=== PATIENT | male | born 1995 | race Caucasian/White ===

== ENCOUNTER 2018-04-09 12:48 | Emergency (ER) | payer OTHER, SELFPAY ==
[2018-04-09 12:55] VITALS: BP 111/67; PULSE 84; RESP 16; TEMP 37; O2SAT 96
--- NOTE | 2018-04-09 13:22 | NUR.NOTE ---
MD Costa is at the bedside.
--- NOTE | 2018-04-09 13:23 | W.ED.GENAD ---
Discharge Plan Disposition Patient Disposition: HOME Condition: Stable Discharge Details Chief Complaint: Nk/Back Pain Clinical Impression: Chronic low back pain Primary Care Provider: NONE,NONE ED Provider: Cristina Costa Home Meds and New Rx's Prescriptions: New cyclobenzaprine 10 mg tablet 10 mg PO TID PRN (Reason: muscle spasm) Qty: 10 RF: 0 ibuprofen 600 mg tablet 600 mg PO QID PRN (Reason: pain) Qty: 20 RF: 0 Continue ibuprofen 600 MG tablet 600 mg PO QID PRN PRNQty: 30 RF: 0 Discharge Instructions Instructions: Low Back Strain (ED) Additional Instructions: Alternate ice and heat to the affected area several times daily. Alternate Tylenol and Motrin as needed and directed for pain. Follow-up with primary care doctor in 1 week for reevaluation as needed. Return to the emergency department with any worsening or new concerning symptoms. Stand Alone Forms: Work Release Discharge Data Discharge Physician: Cristina Costa Medical Decision Making 22yo M who presents with lower back pain for the past 2-3 weeks, worse today when getting out of bed to a standing position. No radiation of pain to leg, leg weakness or numbness, no cauda equina symptoms. No urinary symptoms. No fever. 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 Vitals within normal limits. Patient is tender to palpation in the bilateral lumbar paraspinal region. There is no evidence of trauma or abscess. Neurovascularly intact. No focal deficits. Appears consistent with muscle strain/muscle spasm from chronic back pain from lifting. I do not see any indication for labs or imaging as there are no systemic symptoms or history of injury or focal deficits. Will give dose of Motrin here and sent home with a prescription for Motrin and Flexeril. Patient instructed to follow-up with primary care doctor in 1 week and to return here if worse. Patient requests a work note for tomorrow. HPI General Mode of arrival: ambulatory. Date/Time Provider Initiated Documentation: 04/09/18 13:06. Limitations to Documentation: no limitations. Information obtained by: patient. HPI Narrative: Patient is a 22-year-old male who presents with lower back pain for the past 2-3 weeks. 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 States today he noted that his pain was worse when moving from a supine to sitting and standing position. Patient states he walked here to the emergency department from home. He denies radiation of pain to leg, leg weakness or numbness, urinary or fecal incontinence, saddle anesthesia, abdominal pain, fever, nausea, vomiting or penile discharge. Pt took tylenol for pain this am without relief. He has not taken motrin for pain. Past medical history: None Surgical history: Ankle ORIF Social history: Smokes tobacco, Occasional beer, Daily marijuana Meds: None Allergies: None PCP: [facility] Related Data Home Medications Medication Instructions Recorded Confirmed ibuprofen 600 mg PO QID PRN PRN #30 tab 04/06/15 04/09/18 cyclobenzaprine 10 mg PO TID PRN #10 tab 04/09/18 ibuprofen 600 mg PO QID PRN #20 tab 04/09/18 Previous Rx's Medication Instructions Recorded ibuprofen 600 mg PO QID PRN PRN #30 tab 04/06/15 cyclobenzaprine 10 mg PO TID PRN #10 tab 04/09/18 ibuprofen 600 mg PO QID PRN #20 tab 04/09/18 Allergies Allergy/AdvReac Type Severity Reaction Status Date / Time No Known Allergies Allergy Unverified 04/09/18 12:58 General Stated Complaint: Nk/Back Pain NIYA: 4 Review of Systems Review of Systems All systems reviewed & are unremarkable except as noted in HPI and below Constitutional Reports as per HPI, Denies chills and Denies fever(s) Eyes Denies blurry vision ENT Denies dizziness, Denies sore throat and Denies throat swelling Cardiovascular Denies chest pain and Denies dyspnea Respiratory Denies dyspnea Gastrointestinal Denies abdominal pain, Denies diarrhea and Denies vomiting Genitourinary Denies hematuria and Denies dysuria Musculoskeletal Reports back pain and Denies numbness Integumentary/Breasts Denies lesions and Denies rash Neurologic Denies dizziness and Denies numbness Allergic/Immunologic Denies throat swelling [facility] Social History Smoking/Tobacco Use Status: Current every day Exam Const General: cooperative, healthy appearing and no acute distress HENMT Head: normal to inspection Mouth: oral mucosae normal Eyes General: appearance normal, both eyes and all related structures Neck Neck: normal visual inspection Resp Effort & Inspection: normal respiratory effort and able to speak in complete sentences Auscultation: clear to auscultation bilaterally Cardio Rate: regular rate Rhythm: regular rhythm GI Inspection: normal to inspection Palpation: soft, not firm, no masses, not rigid and nontender Auscultation: normal bowel sounds Penis: normal penis Scrotum: scrotum normal Testes: normal Back/Spine/Pelvis Thoracic/Lumbar Spine: thoracic and lumbar spine normal to inspection, paraspinal tenderness (b/l lumbar paraspinal region ), No thoracic spinal tenderness and No lumbar spinal tenderness Skin General skin exam: no rashes or lesions noted Neuro General: alert, awake and oriented x3 Motor: muscle tone normal throughout and strength 5/5 throughout DTR's: Rt Patellar: 1+, Lt Patellar: 1+, Rt Ankle: 1+ and Lt Ankle: 1+ Plantar Reflexes: Equivocal: bilateral Extrem General: normal to inspection and full ROM Other: B/L DP/PT pulses intact. Psych Appearance: grossly normal Affect: normal affect Course Vital Signs Temperature 98.6 F 04/09/18 12:55 Pulse 84 04/09/18 12:55 Respiratory Rate 16 04/09/18 12:55 Blood Pressure 111/67 04/09/18 12:55 Pulse Oximetry 96 04/09/18 12:55 Temperature 98.6 F 04/09/18 12:55 Temperature Source Skin 04/09/18 12:55 Pulse 84 04/09/18 12:55 Respiratory Rate 16 04/09/18 12:55 Respiratory Effort Non-Labored 04/09/18 12:55 Blood Pressure 111/67 04/09/18 12:55 Pulse Oximetry 96 04/09/18 12:55 Oxygen Delivery Method Room Air 04/09/18 12:55 Oxygen Flow Rate 0 04/09/18 12:55 Pain Level 7 04/09/18 12:55
[2018-04-09] MEDS: Ibuprofen 600 MG TAB PO (13:26)
== END 2018-04-09 13:38 | disposition home or self-care (01) ==
PROVIDERS: Emergency Provider Physician Assistant
DX: M54.5 Low back pain (principal); G89.29 Other chronic pain
CPT/HCPCS: 99283

== ENCOUNTER 2019-02-10 11:44 | Emergency (ER) | payer SELFPAY ==
[2019-02-10 11:48] VITALS: BP 133/73; PULSE 66; RESP 16; TEMP 36.5; O2SAT 99
--- NOTE | 2019-02-10 11:50 | ED.GENADUL_ITS ---
Discharge Plan Disposition Patient Disposition: HOME Condition: Stable Discharge Details Chief Complaint: Orthopedic Clinical Impression: Left knee sprain Primary Care Provider: None,None ED Provider: Cristina Costa Discharge Instructions Instructions: Knee Sprain (ED) Additional Instructions: Alternate tylenol and motrin as needed and directed for pain. Apply ice to the affected area several times daily for 20 minutes at a time. Follow up with your primary care doctor next week for re-evaluation as needed. Return to the emergency department with any concerns. Discharge Data Discharge Physician: Cristina Costa Medical Decision Making 23-year-old male presents with left knee pain after a twisting injury last night in which he may have dislocated and then his friends reduced his patella. Swelling now improved. No complaint of fever or calf pain. There is minimal pain with range of motion but otherwise knee exam within normal limits without signs of cellulitis, trauma, or ligamentous instability. Neurovascularly intact. No left calf tenderness. Presentation most likely consistent with knee sprain. Doubt fracture or ligament tear. We will give a dose of ibuprofen and sent for left knee x-ray. Knee xray negative. Young wrap placed. Advised to rest, ice and elevate. Advised to alternate Tylenol and Motrin. Patient recommended to follow-up with the primary care doctor for evaluation and to return here anytime if worse. HPI General Mode of arrival: ambulatory . Date/Time Provider Initiated Documentation: 02/10/19 11:46 . Limitations to Documentation: no limitations . Information obtained by: patient . HPI Narrative: Patient is a 23-year-old male who presents with left knee pain since last night after a twisting injury. Patient states he was walking when he feels like his left knee popped out. He states his friends evaluated his knee and thought he may have dislocated his kneecap and thinks they may have popped back into place. Patient states he has had left knee swelling and pain since then. He states the swelling is much improved this morning. He has not taken Motrin or Tylenol for pain. He denies any fever, calf pain or swelling, hip pain, numbness or weakness. Related Data Allergies Allergy/AdvReac Type Severity Reaction Status Date / Time No Known Allergies Allergy Unverified 02/10/19 11:49 General Stated Complaint: Orthopedic NIYA: 3 Review of Systems Review of Systems All systems reviewed & are unremarkable except as noted in HPI and below PFSH Medical History No significant past medical history (Acute) Surgical History No significant past surgical history (Acute) Social History Smoking/Tobacco Use Status: Current every day Alcohol Intake: former Drug use: Occasionally Substance use type: marijuana Do you feel safe at home: Yes Do you feel safe in your relationship?: Yes Exam Const General: cooperative, healthy appearing and no acute distress HENMT Head: normal to inspection Mouth: oral mucosae normal Eyes General: appearance normal, both eyes and all related structures Neck Neck: normal visual inspection Resp Effort & Inspection: normal respiratory effort and able to speak in complete sentences Cardio Rate: regular rate Skin General skin exam: no rashes or lesions noted Neuro General: alert, awake and oriented x3 Motor: muscle tone normal throughout Extrem Other: Tenderness to palpation L anterior knee and pain with ROM at L anterior knee. Minimal pain with valgus and varus stress but no ligamentous instability. Negative anterior and posterior drawer tests. Negative Bridgette's test. No edema, ecchymoses, erythema. No pain with ROM at L hip, L ankle/foot. L DP/PT pulses intact. No L calf tenderness. Psych Appearance: grossly normal Affect: normal affect Course Vital Signs Temperature 97.7 F 02/10/19 11:48 Pulse 66 02/10/19 11:48 Respiratory Rate 16 02/10/19 11:48 Blood Pressure 133/73 02/10/19 11:48 Pulse Oximetry 99 02/10/19 11:48 Temperature 97.7 F 02/10/19 11:48 Temperature Source Temporal Artery Scan 02/10/19 11:48 Pulse 66 02/10/19 11:48 Respiratory Rate 16 02/10/19 11:48 Blood Pressure 133/73 02/10/19 11:48 Pulse Oximetry 99 02/10/19 11:48 Pain Level 4 02/10/19 11:48
--- NOTE | 2019-02-10 12:15 | DI.RAD_ITS ---
SYMPTOMS/DIAGNOSIS: S/P POPPING OF LT KNEE, ? ACUTE INJURY LEFT KNEE: Four views were obtained. No fracture is seen.
[2019-02-10] MEDS: Ibuprofen 600 MG TAB PO (12:26)
[2019-02-10 20:27] VITALS: BP 133/73; PULSE 66; RESP 16; TEMP 36.5; O2SAT 99
== END 2019-02-10 13:15 | disposition home or self-care (01) ==
PROVIDERS: Emergency Provider Physician Assistant
DX: S83.92XA Sprain of unspecified site of left knee, initial encounter (principal); X50.9XXA Other and unspecified overexertion or strenuous movements or postures, initial encounter
CPT/HCPCS: 99283; 73564

== ENCOUNTER 2019-10-26 12:15 | Emergency (ER) | payer SELFPAY ==
[2019-10-26 12:25] VITALS: BP 122/67; PULSE 76; RESP 15; TEMP 37.2; O2SAT 97
--- NOTE | 2019-10-26 12:35 | W.ED.GENAD ---
Discharge Plan Disposition Patient Disposition: HOME Condition: Good Discharge Details Chief Complaint: Orthopedic Clinical Impression: Contusion of hand, left Primary Care Provider: None,None ED Provider: Jeromy Arroyo Home Meds and New Rx's Prescriptions: No Action No Known Home Meds RF: 0 Discharge Instructions Instructions: Hand Sprain (ED) Additional Instructions: At this time your x-ray shows no evidence of fracture. Please use the splint as needed for comfort, please take 800 mg of ibuprofen every 6 hours and 1000 mg of Tylenol every 6 hours. If you let your hand rest I suspect that you should have a notable improvement in the next week. If you notice any worsening of your symptoms, or any new symptoms such as vomiting, diarrhea, fever, chills, shortness of breath, chest pain, numbness, weakness, or fainting , please return immediately to the emergency department for reevaluation. Please follow up with your primary care provider as soon as possible for reassessment and reevaluation. As always, it was a pleasure participating in your medical care today. Medical Decision Making 24-year-old male who is right-hand dominant who presents today for evaluation of left hand pain. Patient states that yesterday he punched a truck with his left hand, developed pain in his third fourth and fifth knuckle, primarily the fourth and fifth toe. He has mild achiness, he has difficulty flexing and extending his finger secondary to the pain. He has not taken any Tylenol or Motrin for the pain. He denies any numbness or tingling. No pain in the hand, or wrist. No other complaints at this time. Physical exam demonstrates tenderness over the fourth and fifth knuckle, no atypical rotational component with flexion, strength is intact however limited secondary to pain for flexion and extension of the fourth and fifth digit, other significant pain noted otherwise, normal neurovascular exam. We will get an x-ray to rule out fracture. 12:54 PM The patient's x-ray results have returned, per Dr. Horton no evidence of acute fracture or other abnormality, suspect notable contusion of the bones of the left hand. Out of an abundance of precaution we will give him a boxers splint for comfort, and recommend continue Tylenol and Motrin on an outpatient basis. Discussed red flags for which to return. I have extensively reviewed the treatment plan and discharge instructions with the patient. I have addressed all patient concerns at this time. The patient was made aware of what symptoms to monitor for that would warrant a return to the emergency department. Discussed the plan with the patient, they demonstrate verbal understanding and agreement with our assessment and plan at this time. HPI General Date/Time Provider Initiated Documentation: 10/26/19 12:21. HPI Narrative: 24-year-old male who is right-hand dominant who presents today for evaluation of left hand pain. Patient states that yesterday he punched a truck with his left hand, developed pain in his third fourth and fifth knuckle, primarily the fourth and fifth toe. He has mild achiness, he has difficulty flexing and extending his finger secondary to the pain. He has not taken any Tylenol or Motrin for the pain. He denies any numbness or tingling. No pain in the hand, or wrist. No other complaints at this time. Related Data Home Medications Medication Instructions Recorded Confirmed Unknown [No Known Home Meds] 10/26/19 10/26/19 Allergies Allergy/AdvReac Type Severity Reaction Status Date / Time No Known Allergies Allergy Unverified 10/26/19 12:29 General Stated Complaint: Orthopedic NIYA: 4 Review of Systems All systems reviewed & are unremarkable except as noted in HPI and below [facility] Social History Smoking/Tobacco Use Status: Current every day Alcohol Intake: former Drug use: Occasionally Substance use type: marijuana Do you feel safe at home: Yes Do you feel safe in your relationship?: Yes Exam Narrative Exam Narrative: 1.Const: Well-nourished, Well-developed, appearing stated age 2.Eyes: PERRL, no conjunctival injection, and symmetrical lids. 3.ENT: Atraumatic external nose and ears. Moist MM. Neck: Symmetric, trachea midline, No thyromegaly. 4.CVS: +S1/S2, No murmurs or gallops. Peripheral pulses 2+ and equal in all extremities. Brisk capillary refill in all extremities. 5.RESP: Unlabored respiratory effort. Clear to auscultation bilaterally. No wheezes rales or rhonchi 6.GI: Soft, Nontender/Nondistended, No hepatosplenomegaly. No guarding or rebound. 7.MSK: Normocephalic/Atraumatic, Extremities w/o deformity. No cyanosis or clubbing. Left hand: Symmetrically palpable radial and ulnar pulses. Capillary refill less than 2 seconds to all digits. Intact sensation to light touch of the radial, median and ulnar nerves demonstrated by testing in the dorsal web space of the thumb, the distal palmar aspect of the index finger, and the lateral surface of the fifth finger. 2 point discrimination intact to 5mm (up to 6mm can be normal in digits 3-5) of discrimination in the affected digits 3 through 5. Intact motor function of the radial, median and ulnar nerves demonstrated by strength of extension of the isolated distal joint of the index finger, hand polisher dial, and spreading of the 2nd through 5th digits, however the patient does have mild to moderate pain with extension of the fourth and fifth digit as well as flexion of her strength remains intact.. Intact recurrent median nerve as demonstrated by ability to move thumb fully through opposition, abduction and flexion. No snuffbox tenderness. Focal tenderness is noted over the knuckle of the fourth and fifth digit, as well as slightly distally about 1 cm down the proximal phalanx. No deformity, no atypical rotation with flexion. 8.Skin: Warm, Dry. No rashes or lesions. 9.Neuro: forge heater II-XII grossly intact. Sensation grossly intact, no focal neurologic deficits. 10.Psych: (AAO) x3. Appropriate mood and affect Course Vital Signs Vital signs: Vital Signs Temperature 37.2 C 10/26/19 12:25 Pulse 76 10/26/19 12:25 Respiratory Rate 15 10/26/19 12:25 Blood Pressure 122/67 10/26/19 12:25 Pulse Oximetry 97 10/26/19 12:25 Temperature 37.2 C 10/26/19 12:25 Temperature Source Temporal Artery Scan 10/26/19 12:25 Pulse 76 10/26/19 12:25 Respiratory Rate 15 10/26/19 12:25 Respiratory Effort Non-Labored 10/26/19 12:29 Blood Pressure 122/67 10/26/19 12:25 Blood Pressure Position Supine 10/26/19 12:25 Pulse Oximetry 97 10/26/19 12:25 Oxygen Delivery Method Room Air 10/26/19 12:25 Oxygen Flow Rate 0 10/26/19 12:25 Pain Level 7 10/26/19 12:30
--- NOTE | 2019-10-26 12:43 | DI.RAD_ITS ---
EXAM: XR HAND LT COMPLETE CLINICAL HISTORY: pain at 4th and 5th knuckle. TECHNIQUE: 2D digital imaging was performed. COMPARISON: No exams were available for comparison FINDINGS: BONES: No acute fracture is present. No bony destructive lesion is seen. JOINTS: No dislocation present. SOFT TISSUE: Normal. IMPRESSION: Unremarkable radiographs of the left hand. DATA REPOSITORY: RADIATION DOSE DELIVERED:
== END 2019-10-26 13:05 | disposition home or self-care (01) ==
PROVIDERS: Emergency Provider Student in an Organized Health Care Education/Training Program
DX: S60.222A Contusion of left hand, initial encounter (principal); W22.8XXA Striking against or struck by other objects, initial encounter
CPT/HCPCS: 29125; 99283; 73130; L3807

== ENCOUNTER 2022-02-25 13:20 | Emergency (ER) | payer SELFPAY ==
[2022-02-25 13:29] VITALS: BP 116/58; PULSE 65; RESP 18; TEMP 36.9; O2SAT 98
--- NOTE | 2022-02-25 16:03 | NUR.NOTE ---
Addendum entered by Sheron Jones 02/25/22 16:04: LWBS [id number] Original Note: Nursing Note: Patient LWBS stating to access that he had to go brass pickler his girlfriend and seemed annoyed.
== END 2022-02-25 14:31 | disposition left before discharge ==
DX: Z53.21 Procedure and treatment not carried out due to patient leaving prior to being seen by health care provider (principal)

== ENCOUNTER 2023-03-26 18:45 | Emergency (ER) | payer SELFPAY ==
[2023-03-26 18:50] VITALS: BP 135/87; PULSE 83; RESP 16; TEMP 37; O2SAT 100
--- NOTE | 2023-03-26 19:15 | ED.GENADUL_ITS ---
Discharge Plan Disposition Patient Disposition: Home Condition: Stable Discharge Details Clinical Impression: Cellulitis of postauricular region, Abscess of right upper extremity Primary Care Provider: None,None ED Provider: Clemente Zhao Home Meds and New Rx's Prescriptions: New sulfamethoxazole-trimethoprim 800-160 mg tablet 1 tab PO BID Qty: 13 0RF cephalexin 500 mg capsule 500 mg PO QID Qty: 27 0RF Discharge Instructions Instructions: Cellulitis (ED), Abscess (ED) Additional Instructions: Please take full course of antibiotic as prescribed. Please contact your primary care physician to arrange follow-up. Return to the ER immediately for any worsening or new concerning symptoms. Medical Decision Making 27-year-old male here with multiple skin abscesses and developing cellulitis left postauricular. Plan to initiate treatment with cephalexin and sulfamethizole trimethoprim. Usual and customary discharge instructions reviewed with the patient. HPI General Mode of arrival: ambulatory . Date/Time Provider Initiated Documentation: 03/26/23 19:03 . Limitations to Documentation: no limitations . Information obtained by: patient . HPI Narrative: 27-year-old male presents with chief complaint of rash. Patient notes rash behind his left ear that started a few days ago and has worsened. He is concerned for infection. He notes he frequently picks skin lesions. He also notes multiple draining abscesses on his right arm recently. Patient denies IV drug use. Related Data Home Medications Medication Instructions Recorded Confirmed cephalexin 500 mg capsule 500 mg PO QID #27 caps 03/26/23 sulfamethoxazole 800 1 tab PO BID #13 tabs 03/26/23 mg-trimethoprim 160 mg tablet Previous Rx's Medication Instructions Recorded cephalexin 500 mg capsule 500 mg PO QID #27 caps 03/26/23 sulfamethoxazole 800 1 tab PO BID #13 tabs 03/26/23 mg-trimethoprim 160 mg tablet Allergies Allergy/AdvReac Type Severity Reaction Status Date / Time No Known Allergies Allergy Unverified 10/26/19 12:29 General Stated Complaint: RashLesion NIYA: 4 Review of Systems Constitutional Constitutional: Denies fever(s) Integumentary/Breasts Skin/Breast: Reports as per HPI PFSH All Active Problems Abscess of right upper extremity (Acute) Cellulitis of postauricular region (Acute) Medical History No significant past medical history Surgical History No significant past surgical history Social History Smoking/Tobacco Use Status: Current every day Smoking risk assessment performed?: Yes Alcohol Intake: former Drug use: Occasionally Substance use type: marijuana Do you feel safe at home: Yes Do you feel safe in your relationship?: Yes Exam Cardio Rate: regular rate Skin General skin exam: no induration Rashes: rashes noted (Cellulitis posterior to the left ear) Other: Abscess with ulcer, not actively draining right forearm and another right upper arm, no fluctuance Course Vital Signs Vital signs: Vital Signs Temperature 37.0 C 03/26/23 18:50 Pulse 83 03/26/23 18:50 Respiratory Rate 16 03/26/23 18:50 Blood Pressure 135/87 03/26/23 18:50 Pulse Oximetry 100 03/26/23 18:50 Temperature 37.0 C 03/26/23 18:50 Temperature Source Temporal Artery Scan 03/26/23 18:50 Pulse 83 03/26/23 18:50 Respiratory Rate 16 03/26/23 18:50 Blood Pressure 135/87 03/26/23 18:50 Blood Pressure Position Sitting 03/26/23 18:50 Pulse Oximetry 100 03/26/23 18:50 Oxygen Delivery Method Room Air 03/26/23 18:50 Oxygen Flow Rate 0 03/26/23 18:50 Pain Level 3 03/26/23 18:50
[2023-03-26] MEDS: Sulfameth/Trimeth DS TAB 1 TAB PO (19:28)
[2023-03-26] MEDS: Cephalexin 500 MG CAP PO (19:28)
== END 2023-03-26 19:36 | disposition home or self-care (01) ==
PROVIDERS: Emergency Provider Student in an Organized Health Care Education/Training Program
DX: L02.413 Cutaneous abscess of right upper limb (principal); L03.811 Cellulitis of head [any part, except face]
CPT/HCPCS: 99283

== ENCOUNTER 2023-09-10 14:33 | Emergency (ER) | payer SELFPAY ==
[2023-09-10 14:43] VITALS: BP 143/78; PULSE 69; RESP 18; TEMP 37.1; O2SAT 100
[2023-09-10 15:06] VITALS: BP 143/78; PULSE 69; RESP 18; TEMP 37.1; O2SAT 100
--- NOTE | 2023-09-10 15:15 | DI.US_ITS ---
Exam(s) US SCROTUM EXAM: US SCROTUM CLINICAL HISTORY: Testicular pain left. TECHNIQUE: Scrotal ultrasound performed using grayscale, color-flow and spectral Doppler analysis. COMPARISON: No exams were available for comparison FINDINGS: RIGHT TESTICLE: 5.1 x 2.4 x 2.9 cm Echogenicity: Normal. Contour: Smooth. Mass: None seen. Microlithiasis: None. Hydrocele: None. Varicocele: None. Hernia: No peristalsing bowel loop identified. Epididymis: Normal. Scrotum: Normal. LEFT TESTICLE: 4.7 x 2.3 x 2.9 cm Echogenicity: Normal. Contour: Smooth. Mass: None seen. Microlithiasis: None. Hydrocele: Small hydrocele. Varicocele: None. Hernia: No peristalsing bowel loop identified. Epididymis: 4mm spermatocele Scrotum: Normal. DOPPLER: Color: Symmetric and uniform, no hyperemia. Duplex: Bilateral testicular arterial waveforms visualized. IMPRESSION: Normal appearing bilateral testicles. Smallleft hydrocele. DATA REPOSITORY:
[2023-09-10 15:40] LABS: Abs Immature Grans 0.05 10^3/uL (0.0-0.06); Absolute Basophil Count 0.04 10^3/uL (0.0-0.2); Absolute Eosinophil Count 0.05 10^3/uL (0.0-0.7); Absolute Lymphocyte Count 1.72 10^3/uL (1.2-3.4); Absolute Monocyte Count 0.82 10^3/uL (0.1-0.8); Absolute Neutrophil Count 7.45 10^3/uL (1.2-6.7); Basophils % 0.4; Eosinophils % 0.5; HCT 39.9 % (40.0-50.0); Immature Grans % 0.5; MCHC 35.1 % (32.0-36.0); MCV 88 fL (80-95); MPV 9.7 fL (8.0-11.0); Monocytes % 8.1; Neutrophils % 73.5; Platelet Count 311 10^3/uL (130-400); RBC 4.52 10^6/uL (4.36-5.78); RDW 13.2 % (11.8-14.1); RDW-SD 42.6 fL; WBC 10.13 10^3/uL (4.4-10.8)
[2023-09-10 16:01] LABS: ALT 27 U/L (16-63); AST 16 U/L (15-37); Albumin 3.8 g/dL (3.4-5.0); Alkaline Phosphatase 99 U/L (46-116); Anion Gap 12.4 mmol/L (3-11); BUN 9 mg/dL (7-18); Bilirubin, Total 0.3 mg/dL (0.2-1.0); CO2 25.6 mmol/L (21.0-32.0); CREATININE 0.8 mg/dL (0.70-1.30); Calcium 9.4 mg/dL (8.5-10.1); Chloride 104 mmol/L (98-107); Glucose 69 mg/dL (74-106); Lipase 23 U/L (16-77); Magnesium 1.9 mg/dL (1.8-2.4); Potassium 3.2 mmol/L (3.5-5.1); Sodium 142 mmol/L (136-145); Total Protein 7.4 g/dL (6.4-8.2)
[2023-09-10 17:04] LABS: Bilirubin Negative (Negative); Blood Negative (Negative); Clarity Clear (Clear); Glucose Negative (Negative); Ketones Trace mg/dL (Negative); Leukocyte Esterase Negative (Negative); Nitrite Negative (Negative); Specific Gravity 1.025 (1.005-1.025); Urobilinogen 0.2 mg/dL (Up to 0.2); pH 7.5 (5-8)
--- NOTE | 2023-09-10 17:12 | NUR.NOTE ---
Nursing Note: PT needs follow up in the next few weeks with surgery for an inguinal hernia. Debby, ED
[2023-09-10 17:18] VITALS: BP 143/78; PULSE 69; RESP 18; TEMP 37.1; O2SAT 100
--- NOTE | 2023-09-10 17:29 | ED.GENADUL_ITS ---
Discharge Plan Disposition Patient Disposition: Home Condition: Stable Discharge Details Clinical Impression: Inguinal hernia Primary Care Provider: Unknown,Unknown ED Provider: Deandra Massey Home Meds and New Rx's Prescriptions: New ondansetron HCl 4 mg tablet 4 mg PO DAILY 5 Days Qty: 5 0RF potassium chloride 20 mEq tablet,ER particles/crystals 20 meq PO DAILY Qty: 7 0RF Discontinued sulfamethoxazole-trimethoprim 800-160 mg tablet 1 tab PO BID Qty: 13 0RF cephalexin 500 mg capsule 500 mg PO QID Qty: 27 0RF Discharge Instructions Instructions: Inguinal Hernia (ED) Additional Instructions: You have an inguinal hernia, refrain from lifting more than 10 pounds Follow-up with surgery, and listing a referral below The more you lived more likely your inguinal hernia will grow in size and become more painful Please refer to enclose packet information I am writing for Zofran as needed for nausea and vomiting The surgical group will likely call to schedule follow-up Take ibuprofen and Tylenol as needed for pain Follow-up with your Medicaid process to be sure that you have insurance Stand Alone Forms: Work Release Referrals: Martinez Stover MD [ CONSULTING PHYSICIAN] - HPI General Date/Time Provider Initiated Documentation: 09/10/23 14:56 . HPI Narrative: This 28-year-old male presents with pain left lower quadrant that he states has been going on for 2 weeks, worse when he is lifting, lifts greater than 100 pounds daily. Patient denies fever or chills. Sexually active and monogamous. Denies fever or chills. States pain has been intermittent, worse with walking moving and lifting. Related Data Home Medications Medication Instructions Recorded Confirmed ondansetron HCl 4 mg tablet 4 mg PO DAILY 5 days #5 tabs 09/10/23 potassium chloride 20 mEq 20 meq PO DAILY #7 tabs 09/10/23 tablet,extended release(part/cryst) Previous Rx's Medication Instructions Recorded ondansetron HCl 4 mg tablet 4 mg PO DAILY 5 days #5 tabs 09/10/23 potassium chloride 20 mEq 20 meq PO DAILY #7 tabs 09/10/23 tablet,extended release(part/cryst) Allergies Allergy/AdvReac Type Severity Reaction Status Date / Time No Known Allergies Allergy Unverified 10/26/19 12:29 General Stated Complaint: Abd Prob NIYA: 3 Course Vital Signs Vital signs: Vital Signs Temperature 37.1 C 09/10/23 14:43 Pulse 69 09/10/23 14:43 Respiratory Rate 18 09/10/23 14:43 Blood Pressure 143/78 H 09/10/23 14:43 Pulse Oximetry 100 09/10/23 14:43 Temperature 37.1 C 09/10/23 17:18 Temperature Source Temporal Artery Scan 09/10/23 15:06 Pulse 69 09/10/23 17:18 Respiratory Rate 18 09/10/23 17:18 Respiratory Effort Labored 09/10/23 15:06 Blood Pressure 143/78 H 09/10/23 17:18 Blood Pressure Position Sitting 09/10/23 15:06 Pulse Oximetry 100 09/10/23 17:18 Oxygen Delivery Method Room Air 09/10/23 15:06 Oxygen Flow Rate 0 09/10/23 15:06 Pain Level 5 09/10/23 17:18 Lab/Test Results Lab/Test Results: Laboratory Tests Range/Units 09/10/23 09/10/23 15:20 16:45 WBC (4.4-10.8) 10^3/uL 10.13 RBC (4.36-5.78) 10^6/uL 4.52 Hgb (13.5-17.5) g/dL 14.0 Hct (40.0-50.0) % 39.9 L MCV (80-95) fL 88 MCH (27.0-33.0) pg 31.0 MCHC (32.0-36.0) % 35.1 RDW (11.8-14.1) % 13.2 Plt Count (130-400) 10^3/uL 311 MPV (8.0-11.0) fL 9.7 Immature Gran % 0.5 Neutrophils % 73.5 Lymphocytes % 17.0 Monocytes % 8.1 Eosinophils % 0.5 Basophils % 0.4 Nucleated RBC % (0.0-0.3) % 0.0 Absolute Neutrophils (1.2-6.7) 10^3/uL 7.45 H Absolute Lymphocytes (1.2-3.4) 10^3/uL 1.72 Absolute Monocytes (0.1-0.8) 10^3/uL 0.82 H Absolute Eosinophils (0.0-0.7) 10^3/uL 0.05 Absolute Basophils (0.0-0.2) 10^3/uL 0.04 Sodium (136-145) mmol/L 142 Potassium (3.5-5.1) mmol/L 3.2 L Chloride (98-107) mmol/L 104 Carbon Dioxide (21.0-32.0) mmol/L 25.6 Anion Gap (3-11) mmol/L 12.4 H BUN (7-18) mg/dL 9 Creatinine (0.70-1.30) mg/dL 0.8 Est GFR (CKD-EPI 2020) (mL/min/1.73m2) 122.10 Glucose (74-106) mg/dL 69 L Calcium (8.5-10.1) mg/dL 9.4 Magnesium (1.8-2.4) mg/dL 1.9 Total Bilirubin (0.2-1.0) mg/dL 0.3 AST (15-37) U/L 16 ALT (16-63) U/L 27 Alkaline Phosphatase (46-116) U/L 99 Total Protein (6.4-8.2) g/dL 7.4 Albumin (3.4-5.0) g/dL 3.8 Lipase (16-77) U/L 23 Urine Color (Yellow) Yellow Urine Clarity (Clear) Clear Urine pH (5-8) 7.5 Ur Specific [place] (1.005-1.025) 1.025 Urine Protein (Neg-Trace) mg/dL Negative Urine Ketones (Negative) mg/dL Trace H Urine Blood (Negative) Negative Urine Nitrite (Negative) Negative Urine Bilirubin (Negative) Negative Urine Urobilinogen (Up to 0.2) mg/dL 0.2 Ur Leukocyte Esterase (Negative) Negative Urine Glucose (Negative) mg/dL Negative Medical Decision Making This otherwise healthy 28-year-old male presents with left lower quadrant pain which started about 2 weeks ago, lifts heavy items at work Sexually active monogamous denies risk of STDs, urinalysis without evidence of infection, new leukocytosis, small left hydrocele on ultrasound Left inguinal hernia small palpated on exam No rebound or guarding, easily reducible Potassium 3.2 will supplement Gap of 12.4, drinking tess saloni, glucose of 69, 2 cans of tess saloni supplied Pending GC chlamydia, will refer to surgery for small inguinal hernia, work note supplied for weight lifting restrictions Return precautions reviewed and patient expressed understanding Quality:SDOH Health Related Social Needs: Health related social needs transpo insecurity PFSH All Active Problems (Updated 09/10/23 @ 17:09 by ISIS Watts) Inguinal hernia (Acute) Medical History (Updated 09/10/23 @ 17:09 by ISIS Watts) No significant past medical history Surgical History No significant past surgical history Social History Smoking/Tobacco Use Status: Current every day Smoking risk assessment performed?: Yes Alcohol Intake: former Drug use: Occasionally Substance use type: marijuana Housing: house Do you feel safe at home: Yes Do you feel safe in your relationship?: Yes
[2023-09-13 13:00] LABS: Chlamydia Result Negative (Negative); GC Result Negative (Negative)
== END 2023-09-10 17:20 | disposition home or self-care (01) ==
PROVIDERS: Emergency Medicine Emergency Medical Services; Emergency Provider Physician Assistant
DX: R10.32 Left lower quadrant pain (principal); K40.90 Unilateral inguinal hernia, without obstruction or gangrene, not specified as recurrent; N50.812 Left testicular pain
CPT/HCPCS: 36415; 80053; 83690; 87491; 87591; 99284; 76870; 81003; 83735; 85025; 99283

== ENCOUNTER 2024-01-11 17:00 | Emergency (ER) | payer SELFPAY ==
[2024-01-11 17:11] VITALS: BP 117/66; PULSE 60; RESP 16; TEMP 36.9; O2SAT 100
[2024-01-11] MEDS: predniSONE 20 MG TAB 40 MG PO (17:43)
[2024-01-11] MEDS: Cyclobenzaprine 10 MG TAB, 3 TABS/BTL PO (17:43)
--- NOTE | 2024-01-11 20:42 | ED.GENADUL_ITS ---
Discharge Plan Disposition Patient Disposition: Home Condition: Stable Discharge Details Clinical Impression: Lumbar radicular pain Primary Care Provider: Unknown,Unknown ED Provider: Deandra Massey Home Meds and New Rx's Prescriptions: New prednisone 20 mg tablet 40 mg PO DAILY Qty: 8 0RF cyclobenzaprine 10 mg tablet 10 mg PO TID PRNQty: 15 0RF Continued acetaminophen [Tylenol Extra Strength] 500 mg tablet 1,000 mg PO Q6H PRN Discharge Instructions Instructions: Low Back Pain ED Additional Instructions: limit any lifting take prednisone daily and tylenol every 6 hours as needed flexeril for muscular pain, do not combine with etoh return with weakness, worsening pain, changes in bowel/bladder, fever, or should any new concerns arise Stand Alone Forms: Work Release Discharge Data Discharge Date/Time-TO BE ENTERED AT DEPARTURE: 01/11/24 17:45 HPI General Date/Time Provider Initiated Documentation: 01/11/24 17:04 . HPI Narrative: 28-year-old male presents with lumbar pain with radiation into right thigh in the past several days. History of chronic back pain worsening. Denies any changes in bowel or bladder, denies groin paresthesias. States the pain is worsened with movement. Denies any fever chills or history of illicit drug use. Denies any numbness to her extremities. Denies any fever or chills or abdominal pain. Related Data Home Medications ?Medication ?Instructions ?Recorded ?Confirmed acetaminophen 500 mg tablet 1,000 mg PO Q6H PRN 01/11/24 01/11/24 (Tylenol Extra Strength) cyclobenzaprine 10 mg tablet 10 mg PO TID PRN #15 tabs 01/11/24 prednisone 20 mg tablet 40 mg (2 x 20 mg) PO DAILY #8 tabs 01/11/24 Previous Rx's ?Medication ?Instructions ?Recorded cyclobenzaprine 10 mg tablet 10 mg PO TID PRN #15 tabs 01/11/24 prednisone 20 mg tablet 40 mg (2 x 20 mg) PO DAILY #8 tabs 01/11/24 Allergies Allergy/AdvReac Type Severity Reaction Status Date / Time No Known Allergies Allergy Verified 01/11/24 17:14 General Stated Complaint: Nk/Back Pain NIYA: 4 Exam Narrative Exam Narrative: Alert and oriented 28-year-old male in no acute distress, paraspinal lumbar tenderness without CVA tenderness or abdominal tenderness, no rashes or lesions, negative straight leg raise, sensation intact distally, DTRs intact distally, negative Babinski, ambulatory with steady gait strength intact distally Course Vital Signs Vital signs: Vital Signs Temperature 36.9 C 01/11/24 17:11 Pulse 60 01/11/24 17:11 Respiratory Rate 16 01/11/24 17:11 Blood Pressure 117/66 01/11/24 17:11 Pulse Oximetry 100 01/11/24 17:11 Temperature 36.9 C 01/11/24 17:11 Pulse 60 01/11/24 17:11 Respiratory Rate 16 01/11/24 17:11 Respiratory Effort Normal, Non-Labored 01/11/24 17:19 Blood Pressure 117/66 01/11/24 17:11 Pulse Oximetry 100 01/11/24 17:11 Pain Level 2 01/11/24 17:19 Medical Decision Making 28-year-old male presenting in no acute distress, no clinical findings consistent with cauda equina syndrome, no indication for x-ray imaging at this time, will initiate prednisone, and Flexeril. Recheck in 1 week recommended, return precautions reviewed and patient expressed understanding. Suspect lumbar radiculopathy and will need outpatient reassessment closely. Work note supplied with restrictions. Quality:SDOH Health Related Social Needs: Health related social needs transpo insecurity PFSH All Active Problems (Updated 01/11/24 @ 17:33 by ISIS Watts) Lumbar radicular pain (Acute) Strain of left groin (Acute) Medical History (Updated 01/11/24 @ 17:33 by ISIS Watts) No significant past medical history Surgical History No significant past surgical history Social History Smoking/Tobacco Use Status: Current every day Tobacco Type: cigarettes Smoking risk assessment performed?: Yes Alcohol Intake: former Drug use: Occasionally Substance use type: marijuana Housing: house Do you feel safe at home: Yes Do you feel safe in your relationship?: Yes
== END 2024-01-11 17:45 | disposition home or self-care (01) ==
LOC: ER 18:00
PROVIDERS: Emergency Provider Physician Assistant
DX: M54.16 Radiculopathy, lumbar region (principal)
CPT/HCPCS: 99283; J7512

== ENCOUNTER 2024-01-25 04:47 | Emergency (ER) | payer SELFPAY ==
[2024-01-25 04:49] VITALS: BP 111/69; PULSE 70; RESP 18; TEMP 37.3; O2SAT 100
[2024-01-25] MEDS: methylPREDNISolone SUCC 125 MG VIAL IM (05:21)
[2024-01-25] MEDS: Ketorolac 30 MG/ML VIAL IM (05:21)
[2024-01-25] MEDS: Cyclobenzaprine 10 MG TAB PO (05:21)
[2024-01-25] MEDS: Lidocaine 5% Patch 1 PATCH TP (05:21)
--- NOTE | 2024-01-25 05:34 | ED.GENADUL_ITS ---
Discharge Plan Disposition Patient Disposition: Home Condition: Good Discharge Details Clinical Impression: Radiculopathy Primary Care Provider: Unknown,Unknown ED Provider: Jeromy Arroyo Home Meds and New Rx's Prescriptions: New cyclobenzaprine 10 mg tablet 10 mg PO TID Qty: 14 0RF prednisone 20 mg tablet 20 mg PO DAILY Qty: 42 0RF Rx Instructions: Take 3 tablets daily for 7 days, followed by 2 tablets daily for 7 days, followed by 1 tablet daily for 7 days. lidocaine [Lidoderm] 5 % adhesive patch,medicated 1 patch Topical Q24H Qty: 15 0RF No Action acetaminophen [Tylenol Extra Strength] 500 mg tablet 1,000 mg PO Q6H PRN Discharge Instructions Instructions: Radiculopathy (DC) Additional Instructions: At this time your signs and symptoms are clinically consistent with a back sprain. This can cause significant pain and take a fair bit of time to heal. I expect 1 to 2 months for potential resolution. In the meantime do not lift anything greater than 5 pounds for the next 2 weeks. Avoid any significant vigorous physical activity. Perform easy gentle regular activities at home without any significant bending or lifting. Please take the steroids as directed. You have been given a prescription for Lidoderm patch. If your insurance does not cover this you can get [id number] Lidoderm patches at 4% which are almost just as effective. Please take the Flexeril as directed but do not take it when driving or operating any vehicles or heavy machinery, swimming, taking long baths, or operating firearms. Please use a heating pad as often as possible on your back. Perform daily gentle stretches on your back. Please continue to take the Tylenol and Motrin. You can take 1000 mg of Tylenol every 6 hours and 600 mg of ibuprofen every 6 hours. If you notice any worsening of your symptoms, or any new symptoms such as vomiting, diarrhea, fever, chills, shortness of breath, chest pain, numbness or tingling in your groin or legs, weakness in your legs, loss of control for your bowels or bladder, or fainting , please return immediately to the emergency department for reevaluation. Please follow up with your primary care provider as soon as possible for reassessment and reevaluation. As always, it was a pleasure participating in your medical care today. Stand Alone Forms: Physical Therapy Referral, Work Release Referrals: Lennox,Leatha, RN [Emergency Nurse] - [facility] General Date/Time Provider Initiated Documentation: 01/25/24 04:48 . [facility] Narrative: 28-year-old male with a past medical history of chronic back pain, left inguinal hernia, presents today for evaluation of worsening back pain. On 01/11/2024/he was seen and assessed by my colleague, and symptoms at that time were consistent with mild lumbar radiculopathy. He was started on a steroid burst, given NSAIDs, muscle relaxants, and during that time the patient had improvement of his symptoms. However over the last week since the medications have been finished his symptoms have returned and worsened. Particularly starting yesterday. His work does require him to lift multiple things throughout the day, but he states he has been trying to be careful about lifting too much weight. He also states that he has been having pain that radiates from his back down his legs bilaterally with the right worse than the left. He denies fever or chills. He denies IV drug use. He denies chest pain or shortness of breath. Patient denies any saddle anesthesia, numbness or tingling in the groin, change in sensation when wiping. Patient denies any change in sensation during sexual intercourse, difficulty achieving or maintaining an erection or ejaculation, bowel or bladder incontinence, leakage, or retention. Patient denies any significant weakness in the lower extremities, atypical falls or imbalance. No other complaints at this time. No other modifying factors Related Data Home Medications ?Medication ?Instructions ?Recorded ?Confirmed acetaminophen 500 mg tablet 1,000 mg PO Q6H PRN 01/11/24 01/25/24 (Tylenol Extra Strength) cyclobenzaprine 10 mg tablet 10 mg PO TID #14 tabs 01/25/24 lidocaine 5 % topical patch 1 patch topical Q24H #15 ea 01/25/24 (Lidoderm) prednisone 20 mg tablet 20 mg PO DAILY #42 tabs 01/25/24 Previous Rx's ?Medication ?Instructions ?Recorded cyclobenzaprine 10 mg tablet 10 mg PO TID #14 tabs 01/25/24 lidocaine 5 % topical patch 1 patch topical Q24H #15 ea 01/25/24 (Lidoderm) prednisone 20 mg tablet 20 mg PO DAILY #42 tabs 01/25/24 Allergies Allergy/AdvReac Type Severity Reaction Status Date / Time No Known Allergies Allergy Verified 01/25/24 04:52 General Stated Complaint: Nk/Back Pain NIYA: 4 Review of Systems All systems reviewed & are unremarkable except as noted in HPI and below Exam Narrative Exam Narrative: 1.Const: Well-nourished, Well-developed, appearing stated age 2.Eyes: PERRL, no conjunctival injection, and symmetrical lids. 3.ENT: Atraumatic external nose and ears. Moist MM. Neck: Symmetric, trachea midline, No thyromegaly. 4.CVS: +S1/S2, No murmurs or gallops. Peripheral pulses 2+ and equal in all extremities. Brisk capillary refill in all extremities. 5.RESP: Unlabored respiratory effort. Clear to auscultation bilaterally. No wheezes rales or rhonchi 6.GI: Soft, Nontender/Nondistended, No hepatosplenomegaly. No guarding or rebound. 7.MSK: Normocephalic/Atraumatic, Extremities w/o deformity or ttp No cyanosis or clubbing, Normal movement of all extremities No midline tenderness over the thoracic or cervical vertebra. Patient does have mild midline tenderness at L4. Mild bilateral paraspinal tenderness normal ROM in flexion, extension, side bend, and rotation. Patient has +5 out of 5 strength in the lower extremities in dorsiflexion and plantarflexion, knee flexion and extension, hip flexion and extension. Normal strength for dorsiflexion and plantar flexion of the great toe bilaterally. There is +2 over 2 dorsalis pedis pulses bilaterally. There is normal sensation to the skin with light touch at the foot, knee, and hip. Normal saddle sensation. Good sensation over the deep sural nerve area bilaterally. Rectal tone intact. Reflexes are +2 over 4 in the patellar reflex bilaterally. +5 out of 5 strength in the medial, ulnar, radial nerve distribution bilaterally in the hands as well as intact l ight touch sensation to these dermatomes on the hands 8.Skin: Warm, Dry. No rashes or lesions. 9.Neuro: yarn wrapper II-XII grossly intact. Sensation grossly intact, no focal neurologic deficits. 10.Psych: (AAO) x3. Appropriate mood and affect Course Vital Signs Vital signs: Vital Signs Temperature 37.3 C 01/25/24 04:49 Pulse 70 01/25/24 04:49 Respiratory Rate 18 01/25/24 04:49 Blood Pressure 111/69 01/25/24 04:49 Pulse Oximetry 100 01/25/24 04:49 Temperature 37.3 C 01/25/24 04:49 Temperature Source Temporal Artery Scan 01/25/24 04:49 Pulse 70 01/25/24 04:49 Respiratory Rate 18 01/25/24 04:49 Respiratory Effort Normal, Non-Labored 01/25/24 04:52 Blood Pressure 111/69 01/25/24 04:49 Blood Pressure Position Sitting 01/25/24 04:49 Pulse Oximetry 100 01/25/24 04:49 Oxygen Delivery Method Room Air 01/25/24 04:49 Oxygen Flow Rate 0 01/25/24 04:49 Pain Level 10 01/25/24 04:49 Medical Decision Making 28-year-old male with a past medical history of chronic back pain, left inguinal hernia, presents today for evaluation of worsening back pain. On 01/11/2024/he was seen and assessed by my colleague, and symptoms at that time were consistent with mild lumbar radiculopathy. He was started on a steroid burst, given NSAIDs, muscle relaxants, and during that time the patient had improvement of his symptoms. However over the last week since the medications have been finished his symptoms have returned and worsened. Particularly starting yesterday. His work does require him to lift multiple things throu ghout the day, but he states he has been trying to be careful about lifting too much weight. He also states that he has been having pain that radiates from his back down his legs bilaterally with the right worse than the left. He denies fever or chills. He denies IV drug use. He denies chest pain or shortness of breath. Patient denies any saddle anesthesia, numbness or tingling in the groin, change in sensation when wiping. Patient denies any change in sensation during sexual intercourse, difficulty achieving or maintaining an erection or ejaculation, bowel or bladder incontinence, leakage, or retention. Patient denies any significant weakness in the lower extremities, atypical falls or imbalance. No other complaints at this time. No other modifying factors Exam demonstrates a well-appearing male, mild pain secondary to back pain is certainly actively present. Exam demonstrates intact sensation for the lower extremities bilaterally. No signs of saddle anesthesia. No weakness for dorsiflexion of the great toe. Reflexes intact. Perirectal sensation present. No red flags to suggest paraspinal abscess. Symptoms appear inconsistent with cauda equina syndrome. I too am concerned for radiculopathy. The patient has not had imaging of his back at this time. Will get a CT scan for further assessment. Will treat with steroids and NSAIDs. Will give muscle relaxant Fle xeril and Lidoderm patch. Symptoms inconsistent with urolithiasis. No trauma to suggest fracture. Will monitor closely and reassess. 7:58 AM On reassessment patient feeling much better. Pain notably improved. Symptoms notably clinically inconsistent with cauda equina syndrome or neurovascular compromise. Symptoms appear consistent with radiculopathy. Still pending CT results. Patient will be signed out to my colleague for follow-up on CT imaging. Quality:SDOH Health Related Social Needs: Health related social needs transpo insecurity PFSH All Active Problems (Updated 01/25/24 @ 07:56 by Jeromy Arroyo DO) Radiculopathy (Acute) Lumbar radicular pain (Acute) Strain of left groin (Acute) Medical History (Updated 01/25/24 @ 07:56 by Jeromy Arroyo DO) No significant past medical history Surgical History No significant past surgical history Social History Smoking/Tobacco Use Status: Current every day Tobacco Type: cigarettes Smoking risk assessment performed?: Yes Alcohol Intake: former Drug use: Occasionally Substance use type: marijuana Housing: house Do you feel safe at home: Yes Do you feel safe in your relationship?: Yes
--- NOTE | 2024-01-25 05:50 | DI.CT_ITS ---
Exam(s) CT LUMBAR SPINE WO EXAM: CT LUMBAR SPINE WO CLINICAL HISTORY: right leg tingling, pain at L4 midline. TECHNIQUE: Imaging Protocol: Axial computed tomography images with coronal and sagittal reformatted images were created and reviewed COMPARISON: No exams were available for comparison FINDINGS: Bones: The last intervertebral disc space is designated the L5/S1 level for the numbering purpose of this examination. The vertebral body heights are well maintained. Alignment is satisfactory. No fracture is seen. T12-L1: No disc herniations or bulges are present. L1-2: Right paracentral disc protrusion with mass effect on the right anterior thecal sac and likely nerve root impingement.. L2-3: No disc herniations or bulges are present. L3-4: No disc herniations or bulges are present. L4-5: No disc herniations or bulges are present. L5-S1: Disc bulging eccentric toward the left which may impinge on the right S1 nerve root. The visualized SI joints and sacrum are will maintained. Soft Tissues: The paraspinal soft tissues are unremarkable. IMPRESSION: Right paracentral disc protrusion at L2-3 causing impression on the thecal sac. Disc bulging eccentric toward the left at L5-S1 may impinge on the left S1 nerve root. RADIATION DOSE DELIVERED: Total DLP DATA REPOSITORY: All CT scans at this facility are submitted to the National Radiology Data Registry (NRDR) Dose Index Registry (DIR) with the [employer] ([employer]). RADIATION OPTIMIZATION: All CT scans at this facility use at least one of these dose optimization te chniques: automated exposure control; mA and/or kV adjustment per patient size (includes targeted exa ms where dose is matched to clinical indication); or iterative reconstruction.
--- NOTE | 2024-01-25 08:27 | DI.VRAD_ITS ---
PROCEDURE INFORMATION: Exam: CT Lumbar Spine Without Contrast Exam date and time: 01/25/2024 5:40 AM Age: 28 years old Clinical indication: Low back pain; Patient HX: No known trauma TECHNIQUE: Imaging protocol: Computed tomography of the lumbar spine without contrast. Radiation optimization: All CT scans at this facility use at least one of these dose optimization techniques: automated exposure control; mA and/or kV adjustment per patient size (includes targeted exams where dose is matched to clinical indication); or iterative reconstruction. COMPARISON: No prior relevant exams for comparison. FINDINGS: No fracture or other acute osseous abnormality of the lumbar spine is identified. No spondylolysis or spondylolisthesis. Vertebral body heights are maintained. No evidence of sacroiliitis. L1-L2: No focal disc herniation. L2-L3: There is broad posterior right paracentral disc protrusion at L2-L3, producing ventral compression of the thecal sac primarily to the right of midline. L3-L4: No focal disc herniation. L4-L5: No focal disc herniation. L5-S1: Broad left posterolateral disc protrusion producing slight mass effect on the left S1 nerve root as it exits the thecal sac. IMPRESSION: 1. No acute osseous abnormality identified. 2. Posterior right paracentral broad disc protrusion at L2-L3. 3. Left posterolateral disc protrusion at L5-S1. Dictated and Authenticated by: Akil Nunez MD. Ordering:CHETAN Pinzon MD
[2024-01-25 08:35] VITALS: BP 114/70; PULSE 68; RESP 16; TEMP 37.3; O2SAT 100
== END 2024-01-25 08:37 | disposition home or self-care (01) ==
PROVIDERS: Emergency Provider Emergency Medicine
DX: M54.16 Radiculopathy, lumbar region (principal)
CPT/HCPCS: 96372; 99284; 72131; J1885; J2919

== ENCOUNTER 2024-01-29 04:32 | Emergency (ER) | payer SELFPAY ==
[2024-01-29 04:35] VITALS: BP 141/90; PULSE 76; RESP 16; TEMP 36.9; O2SAT 100
[2024-01-29 04:38] VITALS: BP 141/90; PULSE 76; RESP 16; TEMP 36.9; O2SAT 100
[2024-01-29 04:55] LABS: Abs Immature Grans 0.06 10^3/uL (0.0-0.06); Absolute Eosinophil Count 0.25 10^3/uL (0.0-0.7); Absolute Lymphocyte Count 2.28 10^3/uL (1.2-3.4); Absolute Monocyte Count 0.91 10^3/uL (0.1-0.8); Basophils % 0.4 %; Eosinophils % 1.9 %; HCT 44.9 % (40.0-50.0); HGB 15.1 g/dL (13.5-17.5); Immature Grans % 0.4 %; Lymphocytes % 17.1 %; MCH 30.6 pg (27.0-33.0); MCHC 33.6 % (32.0-36.0); MCV 91 fL (80-95); MPV 9.5 fL (8.0-11.0); Monocytes % 6.8 %; Neutrophils % 73.4 %; Platelet Count 287 10^3/uL (130-400); RBC 4.93 10^6/uL (4.36-5.78); RDW 13.2 % (11.8-14.1); WBC 13.36 10^3/uL (4.4-10.8)
[2024-01-29 04:56] LABS: Absolute Basophil Count 0.05 10^3/uL (0.0-0.2); Absolute Neutrophil Count 9.81 10^3/uL (1.2-6.7)
[2024-01-29] MEDS: Ondansetron 4 MG/2 ML VIAL IVP (05:04)
[2024-01-29] MEDS: Normal Saline 1,000 ML 1000 ML IV (05:04)
[2024-01-29] MEDS: ACETAMINOPHEN 1,000 MG/100 ML BTL 400 MG IVPB (05:04)
[2024-01-29] MEDS: Tamsulosin 0.4 MG CAPCR PO (05:04)
[2024-01-29] MEDS: Ketorolac 30 MG/ML VIAL IVP (05:04)
[2024-01-29] MEDS: MORPHine 4 MG/ML SYR IVP (05:04)
[2024-01-29 05:08] LABS: Bilirubin Negative (Negative); Blood Large (Negative); Glucose Negative (Negative); Ketones Negative (Negative); Leukocyte Esterase Small (Negative); Nitrite Negative (Negative); Urobilinogen 0.2 mg/dL (Up to 0.2); pH 7.5 (5-8)
[2024-01-29 05:09] LABS: ALT 31 U/L (16-63); AST 13 U/L (15-37); Albumin 3.6 g/dL (3.4-5.0); Alkaline Phosphatase 108 U/L (46-116); Anion Gap 6.7 mmol/L (3-11); BUN 9 mg/dL (7-18); Bilirubin, Total 0.23 mg/dL (0.2-1.0); CO2 30.3 mmol/L (21.0-32.0); CREATININE 0.8 mg/dL (0.70-1.30); Calcium 9.6 mg/dL (8.5-10.1); Chloride 101 mmol/L (98-107); Glucose 83 mg/dL (74-106); Potassium 3.7 mmol/L (3.5-5.1); Sodium 138 mmol/L (136-145); Total Protein 7.4 g/dL (6.4-8.2)
[2024-01-29 05:12] LABS: Clarity Sl Cloudy (Clear)
[2024-01-29 05:13] LABS: Bacteria Moderate HPF (Negative); C & S Indicated? Yes; Casts Negative LPF (Negative); Crystals Negative HPF (Negative); Epithelial Cells Negative HPF (Negative); Mucus Negative (Negative); RBC 20-50 HPF (0-2)
--- NOTE | 2024-01-29 05:15 | DI.CT_ITS ---
Exam(s) CT ABDOMEN PELVIS WO EXAM: CT ABDOMEN PELVIS WO CLINICAL HISTORY: right flank pain, r/o stone. TECHNIQUE: Imaging Protocol: Axial computed tomography images with coronal and sagittal reformatted images were created and reviewed. Oral: no COMPARISON: No exams were available for comparison FINDINGS: Lung Bases: No acute findings. Liver: Normal density. No suspicious mass. Gallbladder and biliary tract: No radiodense calculus or biliary dilation. Pancreas: Normal density. No abnormal calcifications or inflammatory process. Spleen: Normal. Kidneys: Normal size, contour and axis. No radiodense stones. No obstructive uropathy. No suspicious masses seen. Adrenal glands: No masses seen. Lymph nodes: Within normal limits. Vasculature: Abdominal aorta non-dilated. Soft tissues: Unremarkable. Bladder: No wall thickening. No mass or calculi. Bowel: No obstruction or bowel wall thickening. Moderate to increased stool. Appendix is normal. Peritoneal cavity: No ascites. No focal collection. No mesenteric inflammatory response. Reproductive organs: Unremarkable. Bones: Unremarkable for age. IMPRESSION: No acute abnormality in the abdomen or pelvis. RADIATION DOSE DELIVERED: Total DLP DATA REPOSITORY: All CT scans at this facility are submitted to the National Radiology Data Registry (NRDR) Dose Index Registry (DIR) with the [employer] (ACR). RADIATION OPTIMIZATION: All CT scans at this facility use at least one of these dose optimization te chniques: automated exposure control; mA and/or kV adjustment per patient size (includes targeted exa ms where dose is matched to clinical indication); or iterative reconstruction.
--- NOTE | 2024-01-29 05:30 | ED.GENADUL_ITS ---
Discharge Plan Discharge Details Chief Complaint: Urinary Clinical Impression: Urinary tract infection Primary Care Provider: Unknown,Unknown ED Provider: Jeromy Arroyo Home Meds and New Rx's Prescriptions: No Action acetaminophen [Tylenol Extra Strength] 500 mg tablet 1,000 mg PO Q6H PRN cyclobenzaprine 10 mg tablet 10 mg PO TID Qty: 14 0RF prednisone 20 mg tablet 20 mg PO DAILY Qty: 42 0RF Rx Instructions: Take 3 tablets daily for 7 days, followed by 2 tablets daily for 7 days, followed by 1 tablet daily for 7 days. lidocaine [Lidoderm] 5 % adhesive patch,medicated 1 patch Topical Q24H Qty: 15 0RF HPI General Date/Time Provider Initiated Documentation: 01/29/24 04:41 . HPI Narrative: This is a pleasant 28-year-old male with a past medical history of known radiculopathy who presents for right flank pain. Patient was recently here in 01/25/24 with left lower back pain and radiculopathy symptoms. CT lumbar spine was performed and demonstrated mild lumbar disc radiculopathy. He was started on steroids and NSAIDs and muscle relaxants and had an improvement of his pain. However last night he had a sudden onset of right-sided flank pain with urinary burning. The symptoms were new, and after an evening of pain he came in for further assessment. He did take his scheduled medications for his radiculopathy but these did not help. Family history is positive for kidney stones. He denies any fever or chills. Related Data Home Medications ?Medication ?Instructions ?Recorded ?Confirmed acetaminophen 500 mg tablet 1,000 mg PO Q6H PRN 01/11/24 01/29/24 (Tylenol Extra Strength) cyclobenzaprine 10 mg tablet 10 mg PO TID #14 tabs 01/25/24 01/29/24 lidocaine 5 % topical patch 1 patch topical Q24H #15 ea 01/25/24 01/29/24 (Lidoderm) prednisone 20 mg tablet 20 mg PO DAILY #42 tabs 01/25/24 01/29/24 Previous Rx's ?Medication ?Instructions ?Recorded cyclobenzaprine 10 mg tablet 10 mg PO TID #14 tabs 01/25/24 lidocaine 5 % topical patch 1 patch topical Q24H #15 ea 01/25/24 (Lidoderm) prednisone 20 mg tablet 20 mg PO DAILY #42 tabs 01/25/24 Allergies Allergy/AdvReac Type Severity Reaction Status Date / Time No Known Allergies Allergy Verified 01/29/24 04:40 General Stated Complaint: Urinary NIYA: 3 Review of Systems All systems reviewed & are unremarkable except as noted in HPI and below Exam Narrative Exam Narrative: 1.Const: Well-nourished, Well-developed, appearing stated age 2.Eyes: PERRL, no conjunctival injection, and symmetrical lids. 3.ENT: Atraumatic external nose and ears. Moist MM. Neck: Symmetric, trachea midline, No thyromegaly. 4.CVS: +S1/S2, No murmurs or gallops. Peripheral pulses 2+ and equal in all extremities. Brisk capillary refill in all extremities. 5.RESP: Unlabored respiratory effort. Clear to auscultation bilaterally. No wheezes rales or rhonchi 6.GI: Soft, Nontender/Nondistended, No hepatosplenomegaly. No guarding or rebound. Right sided CVA tenderness noted on percussion. No right sided abdominal tenderness on palpation. No genital tenderness. 7.MSK: Normocephalic/Atraumatic, Extremities w/o deformity or ttp No cyanosis or clubbing, Normal movement of all extremities No midline cervical thoracic or lumbar spine tenderness. No significant pain with straight leg raise. 8.Skin: Warm, Dry. No rashes or lesions. 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 Sensation grossly intact, no focal neurologic deficits. 10.Psych: (AAO) x3. Appropriate mood and affect Course Vital Signs Vital signs: Vital Signs Temperature 36.9 C 01/29/24 04:35 Pulse 76 01/29/24 04:35 Respiratory Rate 16 01/29/24 04:35 Blood Pressure 141/90 H 01/29/24 04:35 Pulse Oximetry 100 01/29/24 04:35 Temperature 36.9 C 01/29/24 04:38 Temperature Source Temporal Artery Scan 01/29/24 04:38 Pulse 76 01/29/24 04:38 Respiratory Rate 16 01/29/24 04:38 Respiratory Effort Normal, Non-Labored 01/29/24 04:37 Blood Pressure 141/90 H 01/29/24 04:38 Blood Pressure Position Sitting 01/29/24 04:38 Pulse Oximetry 100 01/29/24 04:38 Oxygen Delivery Method Room Air 01/29/24 04:38 Oxygen Flow Rate 0 01/29/24 04:35 Pain Level 10 01/29/24 04:38 Lab/Test Results Lab/Test Results: 01/29/24 05:00 Urine - Reflex from Ua Urine Culture - Pending Laboratory Tests Range/Units 01/29/24 01/29/24 04:43 05:00 WBC (4.4-10.8) 10^3/uL 13.36 H RBC (4.36-5.78) 10^6/uL 4.93 Hgb (13.5-17.5) g/dL 15.1 Hct (40.0-50.0) % 44.9 MCV (80-95) fL 91 MCH (27.0-33.0) pg 30.6 MCHC (32.0-36.0) % 33.6 RDW (11.8-14.1) % 13.2 Plt Count (130-400) 10^3/uL 287 MPV (8.0-11.0) fL 9.5 Immature Gran % % 0.4 Neutrophils % % 73.4 Lymphocytes % % 17.1 Monocytes % % 6.8 Eosinophils % % 1.9 Basophils % % 0.4 Nucleated RBC % (0.0-0.3) % 0.0 Absolute Neutrophils (1.2-6.7) 10^3/uL 9.81 H Absolute Lymphocytes (1.2-3.4) 10^3/uL 2.28 Absolute Monocytes (0.1-0.8) 10^3/uL 0.91 H Absolute Eosinophils (0.0-0.7) 10^3/uL 0.25 Absolute Basophils (0.0-0.2) 10^3/uL 0.05 Sodium (136-145) mmol/L 138 Potassium (3.5-5.1) mmol/L 3.7 Chloride (98-107) mmol/L 101 Carbon Dioxide (21.0-32.0) mmol/L 30.3 Anion Gap (3-11) mmol/L 6.7 BUN (7-18) mg/dL 9 Creatinine (0.70-1.30) mg/dL 0.8 Est GFR (CKD-EPI 2020) (mL/min/1.73m2) 122.10 Glucose (74-106) mg/dL 83 Calcium (8.5-10.1) mg/dL 9.6 Total Bilirubin (0.2-1.0) mg/dL 0.23 AST (15-37) U/L 13 L ALT (16-63) U/L 31 Alkaline Phosphatase (46-116) U/L 108 Total Protein (6.4-8.2) g/dL 7.4 Albumin (3.4-5.0) g/dL 3.6 Urine Color (Yellow) Yellow Urine Clarity (Clear) Sl Cloudy Urine pH (5-8) 7.5 Ur Specific [place] (1.005-1.025) 1.020 Urine Protein (Neg-Trace) mg/dL 100 H Urine Ketones (Negative) mg/dL Negative Urine Blood (Negative) Large H Urine Nitrite (Negative) Negative Urine Bilirubin (Negative) Negative Urine Urobilinogen (Up to 0.2) mg/dL 0.2 Ur Leukocyte Esterase (Negative) Small H Urine RBC (0-2) HPF 20-50 H Urine WBC (0-5) HPF 10-20 H Ur Epithelial Cells (Negative) HPF Negative Urine Crystals (Negative) HPF Negative Urine Bacteria (Negative) HPF Moderate Urine Casts (Negative) LPF Negative Urine Mucus (Negative) Negative Ur Culture Indicated? Yes Urine Glucose (Negative) mg/dL Negative Medical Decision Making This is a pleasant 28-year-old male with a past medical history of known radiculopathy who presents for right flank pain. Patient was recently here in 01/25/24 with left lower back pain and radiculopathy symptoms. CT lumbar spine was performed and demonstrated mild lumbar disc radiculopathy. He was started on steroids and NSAIDs and muscle relaxants and had an improvement of his pain. However last night he had a sudden onset of right-sided flank pain with urinary burning. The symptoms were new, and after an evening of pain he came in for further assessment. He did take his scheduled medications for his radiculopathy but these did not help. Family history is positive for kidney stones. He denies any fever or chills. Exam demonstrates no midline cervical spine tenderness, he does have right-sided CVA tenderness. No genital tenderness. While the patient's previous radiculopathy pain on the left has seemingly been improved/resolved, he now demonstrates signs and symptoms on the right side concerning for kidney stone. Images were reviewed, and although this was not reported on CT results it does appear that he has a 2 mm stone in his right kidney on my review. I suspect this is transition into the ureter. We will give Toradol, Flomax, Ofirmev, morphine and a liter of fluids. Will check a urine to evaluate for infection. Will monitor closely and reassess. 5:42 AM On reassessment patient is feeling much better, pain is still present but improved. Blood shows white count of 13.3 with a left shift, electrolyte and renal function normal, however urinalysis does demonstrate small leuk esterase 20-50 RBCs but 10-20 WBCs. Concern for an infected stone. I do feel that this does merit further CT imaging for evaluation of stone location and current size as this may require retrieval and stenting secondary to its infected nature. We will start 2 g of cefepime, monitor closely and reassess. 7:26 AM Patient remains hemodynamically stable. Pain well-controlled. Patient will be signed out to my colleague for follow-up on CT scan results. Quality:SDOH Health Related Social Needs: Health related social needs transpo insecurity PFSH All Active Problems (Updated 01/29/24 @ 07:27 by Jeromy Arroyo DO) Urinary tract infection (Acute) Radiculopathy (Acute) Lumbar radicular pain (Acute) Strain of left groin (Acute) Medical History (Updated 01/29/24 @ 07:27 by Jeromy Arroyo DO) No significant past medical history Surgical History No significant past surgical history Social History Smoking/Tobacco Use Status: Current every day Tobacco Type: cigarettes Smoking risk assessment performed?: Yes Alcohol Intake: former Drug use: Occasionally Substance use type: marijuana Housing: house Do you feel safe at home: Yes Do you feel safe in your relationship?: Yes
[2024-01-29] MEDS: CEFEPIME 2 GM in Normal Saline 100 ML IVPB (05:34)
--- NOTE | 2024-01-29 08:45 | ED.PROG_ITS ---
Date of service: 01/29/24 Time of Service: 08:46 Medical Decision Making I received signout on this 28-year-old male with back pain. He is found to have a UTI. Continuous back pain he is pending a CT scan to ensure that he does not have ureteral lithiasis. 9:54 AM Met with the patient. He is feeling improved. He had no signs of ureterolithiasis on CT. Given concern for possibility of urinary tract infection will discharge on cefpodoxime to facilitate twice daily dosing. Patient I discussed return indications including any fevers chills nausea or vomiting. Quality:SDOH Health Related Social Needs: Health related social needs transpo insecurity Sign Out Sign Out Data: Sign Out Comment: Right flank pain, evidence of UTI and potential kidney stone. Pending CT results Last updated by Jeromy Arroyo DO at 01/29/24 07:29 Discharge Plan Disposition Patient Disposition: Home Discharge Details Clinical Impression: Urinary tract infection Primary Care Provider: Unknown,Unknown ED Provider: Kt Zhang Angier Meds and New Rx's Prescriptions: New cefpodoxime 200 mg tablet 200 mg PO Q12H 10 Days Qty: 20 0RF Rx Instructions: must administer with a meal/food No Action acetaminophen [Tylenol Extra Strength] 500 mg tablet 1,000 mg PO Q6H PRN cyclobenzaprine 10 mg tablet 10 mg PO TID Qty: 14 0RF prednisone 20 mg tablet 20 mg PO DAILY Qty: 42 0RF Rx Instructions: Take 3 tablets daily for 7 days, followed by 2 tablets daily for 7 days, followed by 1 tablet daily for 7 days. lidocaine [Lidoderm] 5 % adhesive patch,medicated 1 patch Topical Q24H Qty: 15 0RF Discharge Instructions Instructions: Urinary Tract Infection, Adult ED Additional Instructions: You were seen in the emergency department for your flank pain. Your CAT scan showed no sign of a kidney stone. You may have recently passed a kidney stone. There was some concern on your urinalysis that you could have a urinary tract infection. You are receiving antibiotics which you should take as directed. As we discussed, if you develop any fevers worsening pain or if you become vo miting and cannot eat or drink please return to the emergency department.
--- NOTE | 2024-01-29 09:14 | DI.VRAD_ITS ---
PROCEDURE INFORMATION: Exam: CT Abdomen And Pelvis Without Contrast Exam date and time: 01/29/2024 5:49 AM Age: 28 years old Clinical indication: Abdominal pain; Flank; Right; Additional info: Right flank pain, R/O stone TECHNIQUE: Imaging protocol: Computed tomography of the abdomen and pelvis without contrast. COMPARISON: US SCROTUM 09/10/2023 3:30 PM FINDINGS: Liver: Normal. No mass. Gallbladder and biliary ducts: Normal. No calcified stones. No ductal dilation. Pancreas: Normal. No ductal dilation. Spleen: Normal. No splenomegaly. Adrenal glands: Normal. No mass. Kidneys and ureters: No renal or ureteral calculi. No hydronephrosis or hydroureter. Stomach and bowel: Large colonic stool burden. No bowel wall thickening or obstruction. Appendix: No evidence of appendicitis. Intraperitoneal space: Unremarkable. No free air. No significant fluid collection. Vasculature: There are phleboliths in the pelvis. Lymph nodes: Unremarkable. No enlarged lymph nodes. Urinary bladder: Unremarkable as visualized. Reproductive: Unremarkable as visualized. Bones/joints: Unremarkable. No acute fracture. Soft tissues: Unremarkable. IMPRESSION: 1. No renal, ureteral or bladder calculi. No hydronephrosis or hydroureter. 2. Large colonic stool burden. Dictated and Authenticated by: Sergio Diaz MD. Ordering:CHETAN Pinzon MD
[2024-01-29 10:01] VITALS: BP 141/90; PULSE 76; RESP 16; TEMP 36.9; O2SAT 100
== END 2024-01-29 10:03 | disposition home or self-care (01) ==
PROVIDERS: Student in an Organized Health Care Education/Training Program; Emergency Provider Emergency Medicine
DX: N39.0 Urinary tract infection, site not specified (principal); F17.210 Nicotine dependence, cigarettes, uncomplicated
CPT/HCPCS: 00123; 80053; 87077; 96365; 96367; 96375; 99285; 74176; 81003; 81015; 85025; 87086; 87186; 99284; J0131; J0692; J1885; J2270; J2405

== ENCOUNTER 2024-11-22 16:57 | Emergency (ER) | payer SELFPAY ==
[2024-11-22 16:59] VITALS: BP 113/72; PULSE 60; RESP 20; TEMP 36.8; O2SAT 96
--- NOTE | 2024-11-22 17:15 | DI.CT_ITS ---
Exam(s) CT ABDOMEN PELVIS W EXAM: CT PELVIS W CLINICAL HISTORY: Left testicle pain, hx hernia. TECHNIQUE: Imaging Protocol: Axial computed tomography images with coronal and sagittal reformatted images were created and reviewed. A very limited field of view examination was performed. Images were performed from the pubic symphysis through the inferior aspect of the testicles. CONTRAST MATERIAL: Intravenous: Omnipaque 350 Contrast volume:75 ml Oral: no COMPARISON: CT CT ABDOMEN PELVIS WO from 01/29/2024 FINDINGS: PELVIS: Vasculature: Visualized femoral vasculature appears normal. Soft tissues: Unremarkable. No evidence of a hernia. No soft tissue swelling or abscess. The musculature appears symmetric. Bladder: Not included in field of view. Bowel: The perianal region appears normal. Bones: Unremarkable for age. Reproductive organs: Prostate not included in field of view. The testicles and penis are unremarkable. Lymph nodes: No pathologically enlarged lymph nodes. IMPRESSION:: No evidence of a hernia. No evidence of hydrocele. RADIATION DOSE DELIVERED: Total DLP DATA REPOSITORY: All CT scans at this facility are submitted to the National Radiology Data Registry (NRDR) Dose Index Registry (DIR) with the [employer] (ACR). RADIATION OPTIMIZATION: All CT scans at this facility use at least one of these dose optimization techniques: automated exposure control; mA and/or kV adjustment per patient size (includes targeted exams where dose is matched to clinical indication); or iterative reconstruction.
--- NOTE | 2024-11-22 17:18 | W.ED.GENAD ---
Discharge Plan Disposition Patient Disposition: Home Condition: Stable Discharge Details Clinical Impression: Acute UTI Primary Care Provider: Unknown,Unknown ED Provider: Chichi Boss Home Meds and New Rx's Prescriptions: New cephalexin 500 mg tablet 500 mg PO BID 7 Days Qty: 14 0RF No Action acetaminophen [Tylenol Extra Strength] 500 mg tablet 1,000 mg PO Q6H PRN cyclobenzaprine 10 mg tablet 10 mg PO TID Qty: 14 0RF prednisone 20 mg tablet 20 mg PO DAILY Qty: 42 0RF Rx Instructions: Take 3 tablets daily for 7 days, followed by 2 tablets daily for 7 days, followed by 1 tablet daily for 7 days. lidocaine [Lidoderm] 5 % adhesive patch,medicated 1 patch Topical Q24H Qty: 15 0RF Discharge Instructions Instructions: Urinary Tract Infection, Adult ED Additional Instructions: CT today shows no evidence of hernia. It does appear that you have a urinary tract infection. Please take the antibiotic twice daily with yogurt or probiotic as directed. Please take all 7 days of the antibiotic. Please take Tylenol or Ibuprofen with food every 4-6 hours as needed for pain and swelling. A outpatient ultrasound was ordered if you continue to have the testicle pain. Please call the number to make an appointment. Follow up with primary care provider in 3-5 days. Return to ED sooner if any worsening or concerns. Thank you for allowing us to care for you today. Stand Alone Forms: Work Release Referrals: Primary Care Provider [Outside] - 5 days Discharge Orders Other Ambulatory Orders: US scrotum (Routine) Timeframe: 10 Day Facility: [facility] - Location: DIAGNOSTIC IMAGING Ordered By: Chichi Boss [facility] General Mode of arrival: ambulatory. Date/Time Provider Initiated Documentation: 11/22/24 17:08. Limitations to Documentation: no limitations. Information obtained by: patient, RN notes reviewed and old records reviewed. HPI Narrative: 29 year old male presents to the ER with cc of left testicle swelling and pain x 3 weeks. Known inguinal hernia. Reports pain has increased causing nausea, and discomfort and pain with BMs. Denies vomiting, fever, or chills. Reports was recommended surgery in past but declined for financial reasons. Related Data Home Medications ?Medication ?Instructions ?Recorded ?Confirmed acetaminophen 500 mg tablet 1,000 mg PO Q6H PRN 01/11/24 11/22/24 (Tylenol Extra Strength) cyclobenzaprine 10 mg tablet 10 mg PO TID #14 tabs 01/25/24 11/22/24 lidocaine 5 % topical patch 1 patch topical Q24H #15 ea 01/25/24 11/22/24 (Lidoderm) prednisone 20 mg tablet 20 mg PO DAILY #42 tabs 01/25/24 11/22/24 cephalexin 500 mg tablet 500 mg PO BID 7 days #14 tabs 11/22/24 Previous Rx's ?Medication ?Instructions ?Recorded cyclobenzaprine 10 mg tablet 10 mg PO TID #14 tabs 01/25/24 lidocaine 5 % topical patch 1 patch topical Q24H #15 ea 01/25/24 (Lidoderm) prednisone 20 mg tablet 20 mg PO DAILY #42 tabs 01/25/24 cephalexin 500 mg tablet 500 mg PO BID 7 days #14 tabs 11/22/24 Allergies Allergy/AdvReac Type Severity Reaction Status Date / Time No Known Allergies Allergy Verified 11/22/24 17:04 General Stated Complaint: Male Reproductive Problem NIYA: 3 Review of Systems All systems reviewed & are unremarkable except as noted in HPI and below Constitutional Constitutional: Denies chills and Denies fever(s) Genitourinary Genitourinary: Reports as per HPI, Reports scrotal swelling, Reports testicular mass and Reports testicular pain Exam Narrative Exam Narrative: Constitutional: Alert and oriented x3. Appears stated age. Normal body habitus. Head: Normocephalic, no trauma. Eyes: Pupils PERRL, Red reflex noted, EOM's intact. Eyelids symmetrical without lesions, discharge, or swelling. ENT: Bilateral TM's WNL, External ear normal to inspection, no mastoid TTP, swelling, or erythema, Nasal turbinates WNL, no nasal discharge. Normal dentition, Posterior pharynx WNL, no exudate. Chest: RRR, Normal S1, S2, distal pulses intact. Resp: Lungs clear to auscultation bilaterally, no wheezes, rales, or rhonchi. Abdomen: Soft, non-distended, Normoactive bowel sounds all 4 quads. Musculoskeletal: Normal gait, Moves all 4 extremities without difficulty. Skin: No suspicious rashes or lesions. Capillary refill less than 2 sec. Neurologic: Cranial nerves II-XII intact. Alert and oriented x 3. Motor: No deficits noted. Sensory: Intact bilaterally all 4 extremities. Hematologic/Lymphatic: No ecchymosis, no lymphadenopathy. Male General Exam: Yes normal external exam, No erythema, No hernia, No inguinal lymphadenopathy, No lesions, No perineal induration and Yes tenderness Penis: normal penis, no masses, no nodules, no pustules and no swelling Meatus: meatus normal Scrotum: scrotum normal Testes: normal, testicular lie normal, no masses, no testicular mass, no testicular swelling and testicular tenderness on the left Course Vital Signs Vital signs: Vital Signs Temperature 36.8 C 11/22/24 16:59 Pulse 60 11/22/24 16:59 Respiratory Rate 20 11/22/24 16:59 Blood Pressure 113/72 11/22/24 16:59 Pulse Oximetry 96 11/22/24 16:59 Temperature 36.8 C 11/22/24 16:59 Pulse 60 11/22/24 16:59 Respiratory Rate 20 11/22/24 16:59 Blood Pressure 113/72 11/22/24 16:59 Blood Pressure Position Sitting 11/22/24 16:59 Pulse Oximetry 96 11/22/24 16:59 Oxygen Delivery Method Room Air 11/22/24 16:59 Oxygen Flow Rate 0 11/22/24 16:59 Medical Decision Making 29 year old male presents to the ER with cc of left testicle swelling and pain x 3 weeks. Known inguinal hernia. Reports pain has increased causing nausea, and discomfort and pain with BMs. Denies vomiting, fever, or chills. Reports was recommended surgery in past but declined for financial reasons. Labs ordered including CBC, CMP, UA, CT abd pelvis, Acetametiphen and Zofran. Diff dx includes Torsion, strangulated hernia, inguinal hernia, variocele, orchiditis, UTI CT is within normal limits no evidence of hernia, no leukocytosis potassium slightly low at 3.142, urinalysis is pending at this time. On exam he does have a normal male exam. No evidence of torsion I will order an outpatient ultrasound to be done to evaluate blood flow. Urinalysis does show evidence of UTI positive nitrites 20-50 WBCs no leukocytes, culture is pending. Patient placed on cephalexin 500 mg twice daily first dose given here in the emergency department Patient discharged in hemodynamically stable condition once tolerating p.o. without difficulty. Instructed to follow-up with PCP discussed strict return instructions. This text was generated using [employer] dictation system, please disregard any oddities of phrase or misspellings. Lab Data Lab results reviewed: Yes I reviewed the patient's lab results. Labs: 11/22/24 18:20 Urine - Reflex from Ua Urine Culture - Pending Laboratory Tests Range/Units 11/22/24 11/22/24 17:25 18:20 WBC (4.4-10.8) 10^3/uL 8.92 RBC (4.36-5.78) 10^6/uL 4.50 Hgb (13.5-17.5) g/dL 13.7 Hct (40.0-50.0) % 39.8 L MCV (80-95) fL 88 MCH (27.0-33.0) pg 30.4 MCHC (32.0-36.0) % 34.4 RDW (11.8-14.1) % 13.2 Plt Count (130-400) 10^3/uL 246 MPV (8.0-11.0) fL 10.0 Immature Gran % % 0.2 Neutrophils % % 59.0 Lymphocytes % % 29.1 Monocytes % % 9.1 Eosinophils % % 2.0 Basophils % % 0.6 Nucleated RBC % (0.0-0.3) % 0.0 Absolute Neutrophils (1.2-6.7) 10^3/uL 5.26 Absolute Lymphocytes (1.2-3.4) 10^3/uL 2.60 Absolute Monocytes (0.1-0.8) 10^3/uL 0.81 H Absolute Eosinophils (0.0-0.7) 10^3/uL 0.18 Absolute Basophils (0.0-0.2) 10^3/uL 0.05 Sodium (136-145) mmol/L 142 Potassium (3.5-5.1) mmol/L 3.2 L Chloride (98-107) mmol/L 105 Carbon Dioxide (21.0-32.0) mmol/L 26.5 Anion Gap (3-11) mmol/L 10.5 BUN (7-18) mg/dL 9 Creatinine (0.70-1.30) mg/dL 0.8 Est GFR (CKD-EPI 2020) (mL/min/1.73m2) 121.34 Glucose (74-106) mg/dL 78 Calcium (8.5-10.1) mg/dL 8.8 Magnesium (1.8-2.4) mg/dL 1.8 Total Bilirubin (0.2-1.0) mg/dL 0.5 AST (15-37) U/L 16 ALT (16-63) U/L 29 Alkaline Phosphatase (46-116) U/L 110 Total Protein (6.4-8.2) g/dL 6.9 Albumin (3.4-5.0) g/dL 3.8 Urine Color (Yellow) Yellow Urine Clarity (Clear) Clear Urine pH (5-8) 6.0 Ur Specific [place] (1.005-1.025) <= 1.005 Urine Protein (Neg-Trace) mg/dL Negative Urine Ketones (Negative) mg/dL Negative Urine Blood (Negative) Trace-intact H Urine Nitrite (Negative) Positive H Urine Bilirubin (Negative) Negative Urine Urobilinogen (Up to 0.2) mg/dL 0.2 Ur Leukocyte Esterase (Negative) Negative Urine RBC (0-2) HPF 0-2 Urine WBC (0-5) HPF 20-50 H Ur Epithelial Cells (Negative) HPF Negative Urine Crystals (Negative) HPF Negative Urine Bacteria (Negative) HPF Moderate Urine Casts (Negative) LPF Negative Urine Mucus (Negative) Negative Ur Culture Indicated? Yes Urine Glucose (Negative) mg/dL Negative PFSH All Active Problems (Updated 11/22/24 @ 19:02 by Chichi Boss NP) Acute UTI (Acute) Strain of left groin (Acute) Medical History (Updated 11/22/24 @ 19:02 by Chichi Boss NP) No significant past medical history Surgical History No significant past surgical history Social History Smoking/Tobacco Use Status: Current every day Tobacco Type: cigarettes Smoking risk assessment performed?: Yes Alcohol Intake: former Drug use: Occasionally Substance use type: marijuana Housing: house Do you feel safe at home: Yes Do you feel safe in your relationship?: Yes
[2024-11-22] MEDS: Ondansetron 4 MG/2 ML VIAL IVP (17:29)
[2024-11-22] MEDS: ACETAMINOPHEN 1,000 MG/100 ML BAG 400 MG IVPB (17:29)
[2024-11-22 17:35] LABS: Abs Immature Grans 0.02 10^3/uL (0.0-0.06); Absolute Basophil Count 0.05 10^3/uL (0.0-0.2); Absolute Eosinophil Count 0.18 10^3/uL (0.0-0.7); Absolute Monocyte Count 0.81 10^3/uL (0.1-0.8); Absolute Neutrophil Count 5.26 10^3/uL (1.2-6.7); Basophils % 0.6 %; HCT 39.8 % (40.0-50.0); HGB 13.7 g/dL (13.5-17.5); Immature Grans % 0.2 %; Lymphocytes % 29.1 %; MCH 30.4 pg (27.0-33.0); MCHC 34.4 % (32.0-36.0); MCV 88 fL (80-95); Monocytes % 9.1 %; Platelet Count 246 10^3/uL (130-400); RDW 13.2 % (11.8-14.1); RDW-SD 42.8 fL; WBC 8.92 10^3/uL (4.4-10.8)
[2024-11-22] MEDS: Normal Saline - Diluent 50 ML VIAL IJ (17:40)
[2024-11-22] MEDS: Omnipaque 350 MG/ML 100 ML BTL IJ (17:42)
[2024-11-22 17:58] LABS: ALT 29 U/L (16-63); AST 16 U/L (15-37); Albumin 3.8 g/dL (3.4-5.0); Alkaline Phosphatase 110 U/L (46-116); Anion Gap 10.5 mmol/L (3-11); BUN 9 mg/dL (7-18); Bilirubin, Total 0.5 mg/dL (0.2-1.0); CO2 26.5 mmol/L (21.0-32.0); CREATININE 0.8 mg/dL (0.70-1.30); Calcium 8.8 mg/dL (8.5-10.1); Chloride 105 mmol/L (98-107); Estimated GFR 121.34 (mL/min/1.73m2); Glucose 78 mg/dL (74-106); Magnesium 1.8 mg/dL (1.8-2.4); Potassium 3.2 mmol/L (3.5-5.1); Sodium 142 mmol/L (136-145); Total Protein 6.9 g/dL (6.4-8.2)
[2024-11-22 18:44] LABS: Bilirubin Negative (Negative); Blood Trace-intact (Negative); Clarity Clear (Clear); Glucose Negative (Negative); Ketones Negative (Negative); Leukocyte Esterase Negative (Negative); Nitrite Positive (Negative); Specific Gravity <= 1.005 (1.005-1.025); Urobilinogen 0.2 mg/dL (Up to 0.2)
[2024-11-22 18:50] LABS: Bacteria Moderate HPF (Negative); C & S Indicated? Yes; Casts Negative LPF (Negative); Crystals Negative HPF (Negative); Epithelial Cells Negative HPF (Negative); Mucus Negative (Negative); RBC 0-2 HPF (0-2); WBC 20-50 HPF (0-5)
[2024-11-22] MEDS: Cephalexin 500 MG CAP PO (19:07)
[2024-11-22] MEDS: Cephalexin 500 MG CAP, 2 CAPS/BTL PO (19:08)
== END 2024-11-22 19:19 | disposition home or self-care (01) ==
PROVIDERS: Emergency Provider Registered Nurse Emergency
DX: N39.0 Urinary tract infection, site not specified (principal); F17.210 Nicotine dependence, cigarettes, uncomplicated
CPT/HCPCS: 80053; 87077; 96374; 96375; 99285; 74177; 81003; 81015; 83735; 85025; 87086; 87186; 99284; J0131; J2405; J3490

== ENCOUNTER 2025-03-06 08:56 | Emergency (ER) | payer SELFPAY ==
--- NOTE | 2025-03-06 08:59 | W.ED.GENAD ---
Discharge Plan Disposition Patient Disposition: Home Discharge Details Clinical Impression: Bronchitis Primary Care Provider: Unknown,Unknown ED Provider: Kt Zhang Home Meds and New Rx's Prescriptions: New promethazine-DM 6.25-15 mg/5 mL syrup 5 ml PO Q6H PRNQty: 118 0RF cetirizine 10 mg tablet 10 mg PO DAILY PRNQty: 7 0RF benzonatate 100 mg capsule 100 mg PO BID PRNQty: 7 0RF fluticasone propionate [Flonase Allergy Relief] 50 mcg/actuation spray,suspension 1 spray intranasal DAILY Qty: 16 0RF Rx Instructions: administer into each nostril Continued acetaminophen [Tylenol Extra Strength] 500 mg tablet 1,000 mg PO Q6H PRN lidocaine [Lidoderm] 5 % adhesive patch,medicated 1 patch Topical Q24H Qty: 15 0RF Discharge Instructions Instructions: Acute bronchitis Additional Instructions: You were seen in the emergency department for your cough. Your x-ray showed no sign of pneumonia. As we discussed if you do not urinate at least once every 8 hours while awake or if your cough worsens please return to the emergency department. Please take these prescriptions that have been sent to your pharmacy. For your discomfort please take the following additional medications: 1. Take acetaminophen (Tylenol), 1,000 mg (two 500 mg tabs) every 6 hours [2. Take ibuprofen (Advil), 400 mg every 6 hours.] You will receive a callback if your COVID influenza and RSV swab returned positive. If you do not hear from us these tests were negative. A referral has been placed for you to have a primary care provider. You are receiving a note from work. Stand Alone Forms: Work Release HPI General Date/Time Provider Initiated Documentation: 03/06/25 08:57. HPI Narrative: MDM This is an overall very well-appearing normothermic and not tachycardic 29-year-old male with subjective body aches chills congestion concerning for bronchitis versus pneumonia for which patient underwent chest x-ray which was reassuring in the emergency department. Patient has no nuchal rigidity to suggest meningitis. Good range of motion in neck making my suspicion of low for retropharyngeal abscess. His uvula was midline so I doubt peritonsillar abscess. No significant posterior oropharynx erythema based on Cent[employer] criteria I did not swab for strep pharyngitis. No objective fevers to suggest mononucleosis. Patient appears quite well-hydrated to medication for IV fluids nor assessment of electrolytes as he has not been vomiting. He denies dysuria and frequency make my suspicion low for UTI. In the absence of chest pain I did not obtain an ECG as I was not suspicious for ACS. He has not been vomiting to suggest increased risk for subdural empyema. He does not have a primary care provider so I have asked health community center director Rach to have the patient established with a PCP for follow-up in the next month. Patient and I discussed that he should return to the ED if he did not urinate at least once every 8 hours or if his cough worsened. I sent supportive medications to his pharmacy. He understands this return indications of discharge with empiric trial of expectant outpatient management. 4:29 PM Respiratory viral swab negative. HPI This is a patient presenting with a cough. The patient reports experiencing body aches, chills, and a cough that varies between producing phlegm and being dry. The onset of these symptoms was on 03/02/2025. He felt well over the weekend but after returning to work on 03/05/2025, his condition worsened by the end of the day. He also mentions a sore throat and a raspy voice. He has not been in contact with any sick individuals. The patient smokes cigarettes and does not have asthma. He reports no chest pain or vomiting. He has not taken any medication today. He has received all his childhood vaccines. He takes Tylenol and ibuprofen as needed. Exam General: Well-appearing in no acute distress speaking in complete sentences. Head: Normocephalic, atraumatic. Eye: Extraocular eye movements intact. No conjunctival injection. No scleral icterus. Ear, nose, mouth, throat: Grossly normal inspection. Normal voice, handling secretions normally. Uvula midline. No significant posterior oropharynx erythema. No cervical lymphadenopathy. Neck: Trachea midline. Good range of motion in neck. Cardiovascular: Well-perfused distal extremities. Regular rate and rhythm. Respiratory: Nonlabored respiration. Clear lungs bilaterally. Gastrointestinal: Nondistended abdomen. Musculoskeletal: No edema. Moving all 4 extremities spontaneously. Skin: Normal for age and race, grossly normal temperature and turgor. No acute rash. Neurologic: Alert and appropriate, no apparent acute deficits. Psychiatric: Mood and manner are appropriate. Grooming and personal hygiene are appropriate. Related Data Home Medications ?Medication ?Instructions ?Recorded ?Confirmed acetaminophen 500 mg tablet 1,000 mg PO Q6H PRN 01/11/24 03/06/25 (Tylenol Extra Strength) lidocaine 5 % topical patch 1 patch topical Q24H #15 ea 01/25/24 03/06/25 (Lidoderm) benzonatate 100 mg capsule 100 mg PO BID PRN #7 caps 03/06/25 cetirizine 10 mg tablet 10 mg PO DAILY PRN #7 tabs 03/06/25 fluticasone propionate 50 1 spray intranasal DAILY #16 grams 03/06/25 mcg/actuation nasal spray,suspension (Flonase Allergy Relief) promethazine-DM 6.25 mg-15 mg/5 mL 5 ml PO Q6H PRN #118 mL 03/06/25 oral syrup Previous Rx's ?Medication ?Instructions ?Recorded lidocaine 5 % topical patch 1 patch topical Q24H #15 ea 01/25/24 (Lidoderm) benzonatate 100 mg capsule 100 mg PO BID PRN #7 caps 03/06/25 cetirizine 10 mg tablet 10 mg PO DAILY PRN #7 tabs 03/06/25 fluticasone propionate 50 1 spray intranasal DAILY #16 grams 03/06/25 mcg/actuation nasal spray,suspension (Flonase Allergy Relief) promethazine-DM 6.25 mg-15 mg/5 mL 5 ml PO Q6H PRN #118 mL 03/06/25 oral syrup Allergies Allergy/AdvReac Type Severity Reaction Status Date / Time No Known Allergies Allergy Verified 03/06/25 09:03 General NIYA: 3 PFSH All Active Problems (Updated 03/06/25 @ 09:30 by Kt Zhang MD) Bronchitis (Acute) Strain of left groin (Acute) Medical History (Updated 03/06/25 @ 09:30 by Kt Zhang MD) No significant past medical history Surgical History No significant past surgical history Social History Smoking/Tobacco Use Status: Current every day Tobacco Type: cigarettes Smoking risk assessment performed?: Yes Alcohol Intake: former Drug use: Occasionally Substance use type: marijuana Housing: house Do you feel safe at home: Yes Do you feel safe in your relationship?: Yes
[2025-03-06 09:00] VITALS: BP 114/71; PULSE 59; RESP 16; TEMP 36.7; O2SAT 100
--- NOTE | 2025-03-06 09:00 | DI.RAD_ITS ---
Exam(s) XR CHEST 2V PA LATERAL EXAM: XR CHEST 2V PA LATERAL CLINICAL HISTORY: Body aches. TECHNIQUE: 2D digital imaging was performed. COMPARISON: No exams were available for comparison FINDINGS: 2 views: Heart size is normal. The mediastinum is not widened. Lungs are clear. No infiltrates nor pleural effusions. IMPRESSION: No acute pulmonary findings. DATA REPOSITORY: RADIATION DOSE DELIVERED:
[2025-03-06 09:07] VITALS: BP 114/71; PULSE 59; RESP 16; TEMP 36.7; O2SAT 100
[2025-03-06] MEDS: Ibuprofen 600 MG TAB PO (09:39)
[2025-03-06] MEDS: Acetaminophen 500 MG TAB 1000 MG PO (09:39)
[2025-03-06 10:05] LABS: COVID-19 PCR Negative (Negative); RSV PCR Negative (Negative)
== END 2025-03-06 09:47 | disposition home or self-care (01) ==
LOC: ER 09:36
PROVIDERS: Emergency Provider Emergency Medicine
DX: J20.9 Acute bronchitis, unspecified (principal)
CPT/HCPCS: 99283 ×2; 87637; 71046

== ENCOUNTER 2025-04-03 05:36 | Emergency (ER) | payer SELFPAY ==
[2025-04-03 05:40] VITALS: BP 139/89; PULSE 70; RESP 16; TEMP 36.5; O2SAT 100
[2025-04-03 05:45] VITALS: BP 139/89; PULSE 70; RESP 16; TEMP 36.5; O2SAT 100
--- NOTE | 2025-04-03 05:45 | DI.CT_ITS ---
Exam(s) CT HEAD FACIAL WO EXAM: CT HEAD FACIAL WO CLINICAL HISTORY: hitleft brow, bruising. TECHNIQUE: Imaging Protocol: Axial computed tomography images with coronal and sagittal reformatted images were created and reviewed COMPARISON: No exams were available for comparison FINDINGS: BRAIN: There are no skull fractures nor fluid in the visualized paranasal sinuses. There is no evidence of intracranial hemorrhage, mass effect, or shift of midline structures. There are no extra-axial fluid collections. The ventricles are not enlarged or shifted and there is no blood within the ventricular system nor within the basal cisterns. MAXILLOFACIAL CT SCAN: There is no evidence of facial fractures and no evidence of orbital blowout fracture. There are multiple foci of mucosal thickening in both maxillary sinuses which are either polyps or post inflammatory retention cyst. There is no associated fluid level nor bone dehiscence. The other paranasal sinuses are clear as are the mastoid air cells.. A there is a solitary tiny radiopaque foreign body in the left eyelid (series 12/image 15). Mandible appears intact as do the TM joints. IMPRESSION: No acute intracranial findings on this noninfused CT scan of the brain. No evidence of facial bone fractures nor orbital fractures. Small radiopaque foreign body in the anterior left eye which is probably between the eyelid and cornea Paranasal sinus findings as above. Preliminary [facility] report was reviewed RADIATION DOSE DELIVERED: 982.79mGy.cm Total DLP DATA REPOSITORY: All CT scans at this facility are submitted to the National Radiology Data Registry (NRDR) Dose Index Registry (DIR) with the [employer] (A[employer]). RADIATION OPTIMIZATION: All CT scans at this facility use at least one of these dose optimization techniques: automated exposure control; mA and/or kV adjustment per patient size (includes targeted exams where dose is matched to clinical indication); or iterative reconstruction.
--- NOTE | 2025-04-03 05:59 | W.ED.GENAD ---
Discharge Plan Disposition Patient Disposition: Home Condition: Good Discharge Details Clinical Impression: Orbit injury, left, Contusion of left orbit Primary Care Provider: Unknown,Unknown ED Provider: Jeromy Arroyo Home Meds and New Rx's Prescriptions: No Action acetaminophen [Tylenol Extra Strength] 500 mg tablet 1,000 mg PO Q6H PRN lidocaine [Lidoderm] 5 % adhesive patch,medicated 1 patch Topical Q24H Qty: 15 0RF promethazine-DM 6.25-15 mg/5 mL syrup 5 ml PO Q6H PRNQty: 118 0RF benzonatate 100 mg capsule 100 mg PO BID PRNQty: 7 0RF fluticasone propionate [Flonase Allergy Relief] 50 mcg/actuation spray,suspension 1 spray intranasal DAILY Qty: 16 0RF Rx Instructions: administer into each nostril chlorhexidine gluconate 0.12 % mouthwash Patient Comments: SWISH AND SPIT 15 ML BY MOUTH TWICE DAILY Discharge Instructions Instructions: Concussion in adults, Eye Contusion (DC) Additional Instructions: At this time CT scan shows no evidence of bleed, fracture or other abnormality. I do suspect that you have a notable contusion to the left brow, and also potential for mild concussion. If you have any worsening of your symptoms please return immediately. Please be very cognizant of any evidence of worsening headache, vomiting, weakness, numbness, dizziness, decreased concentration, memory problems, sleep disturbance, irritability, fatigue, visual disturbances, judgment problems, depression, or anxiety. These may represent a worsening of your condition or a different, or worse pathology. Please either return immediately for reevaluation or follow up with your primary care provider immediately for continued assessment, reassessment, and management. Please avoid any contact sports, or activities which could cause jarring of your head. A second repeat injury can cause significant and permanent brain damage. After you have complete resolution of any of the symptoms noted above please wait one COMPLETE week until you resume normal gentle physical activity. If you have any return of the symptoms after this, please again wait 1 week after you have complete resolution of your symptoms to return to gentle and normal activities. Stand Alone Forms: Work Release HPI General Date/Time Provider Initiated Documentation: 04/03/25 05:40. HPI Narrative: This is a 29-year-old male who with no significant past medical history who presents today for evaluation of pain in his left brow. Patient states that he was working at work when a wire pull slipped and hit him in the left brow earlier this afternoon. Caused immediate pain and he saw some stars and was mildly dizzy but he did not have any loss of consciousness at that time. Since then he has had mild tenderness in the left orbit, as well as some intermittent blurry vision. He was not able to sleep tonight so he came in this morning at 6 AM for further assessment. He denies any other complaints. No other modifying factors. No other trauma. He does admit to a slight irritated foreign body sensation in his left eye lateral aspect. Related Data Home Medications ?Medication ?Instructions ?Recorded ?Confirmed acetaminophen 500 mg tablet 1,000 mg PO Q6H PRN 01/11/24 04/03/25 (Tylenol Extra Strength) lidocaine 5 % topical patch 1 patch topical Q24H #15 ea 01/25/24 04/03/25 (Lidoderm) benzonatate 100 mg capsule 100 mg PO BID PRN #7 caps 03/06/25 04/03/25 fluticasone propionate 50 1 spray intranasal DAILY #16 grams 03/06/25 04/03/25 mcg/actuation nasal spray,suspension (Flonase Allergy Relief) promethazine-DM 6.25 mg-15 mg/5 mL 5 ml PO Q6H PRN #118 mL 03/06/25 04/03/25 oral syrup chlorhexidine gluconate 0.12 % 04/03/25 mouthwash Previous Rx's ?Medication ?Instructions ?Recorded lidocaine 5 % topical patch 1 patch topical Q24H #15 ea 01/25/24 (Lidoderm) benzonatate 100 mg capsule 100 mg PO BID PRN #7 caps 03/06/25 fluticasone propionate 50 1 spray intranasal DAILY #16 grams 03/06/25 mcg/actuation nasal spray,suspension (Flonase Allergy Relief) promethazine-DM 6.25 mg-15 mg/5 mL 5 ml PO Q6H PRN #118 mL 03/06/25 oral syrup Allergies Allergy/AdvReac Type Severity Reaction Status Date / Time No Known Allergies Allergy Verified 03/06/25 09:03 General Stated Complaint: FacialProb NIYA: 3 Exam Narrative Exam Narrative: 1.Const: Well-nourished, Well-developed, appearing stated age 2.Eyes: PERRL, no conjunctival injection, and symmetrical lids. Left eye: EOMI, PERRL, Peripheral vision intact. No nystagmus. Fundoscopic exam shows normal optic discs and normal vasculature. No clinical signs of septal/orbital cellulitis, no redness around the eye, no proptosis. No hyphema, no signs of trauma around the eye, no periorbital emphysema. No sluggishness of the pupil. No ophthalmoplegia. No afferent pupillary defect. Fluorescein exam is negative for corneal abrasion, negative Roslyn sign. Visual acuity as documented in chart. 3.ENT: Atraumatic external nose and ears. Moist MM. Neck: Symmetric, trachea midline, No thyromegaly. There is no evidence of raccoon eyes, roach sign, CSF rhinorrhea, mastoid tenderness, cranial crepitus, hemotympanum, exophthalmos, or hyphema. Patient demonstrates intact dentition with no signs of tooth avulsion or fracture, no signs of jaw deformity, no evidence of a LeFort's fracture, with an intact palate, nose and orbital region. There is no evidence of a nasal septal hematoma. No proptosis. Jaw closes symmetrically. Airway is clear. There is mild bruising around the left lateral orbit with tenderness there. Mild tenderness over the zygomatic area. 4.CVS: +S1/S2, Peripheral pulses 2+ and equal in all extremities. Brisk capillary refill in all extremities. 5.RESP: Unlabored respiratory effort. Clear to auscultation bilaterally. No wheezes rales or rhonchi 6.GI: Soft, Nontender/Nondistended, No hepatosplenomegaly. No guarding or rebound. 7.MSK: Normocephalic/Atraumatic, Extremities w/o deformity or ttp No cyanosis or clubbing, Normal movement of all extremities 8.Skin: Warm, Dry. No rashes or lesions. 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 Sensation grossly intact, no focal neurologic deficits. 10.Psych: (AAO) x3. Appropriate mood and affect Course Vital Signs Vital signs: Vital Signs Temperature 36.5 C 04/03/25 05:40 Pulse 70 04/03/25 05:40 Respiratory Rate 16 04/03/25 05:40 Blood Pressure 139/89 04/03/25 05:40 Pulse Oximetry 100 04/03/25 05:40 Temperature 36.5 C 04/03/25 05:45 Temperature Source Temporal Artery Scan 04/03/25 05:45 Pulse 70 04/03/25 05:45 Respiratory Rate 16 04/03/25 05:45 Blood Pressure 139/89 04/03/25 05:45 Blood Pressure Position Sitting 04/03/25 05:45 Pulse Oximetry 100 04/03/25 05:45 Oxygen Delivery Method Room Air 04/03/25 05:45 Oxygen Flow Rate 0 04/03/25 05:45 Pain Level 6 04/03/25 05:45 Medical Decision Making This is a 29-year-old male who with no significant past medical history who presents today for evaluation of pain in his left brow. Patient states that he was working at work when a wire pull slipped and hit him in the left brow earlier this afternoon. Caused immediate pain and he saw some stars and was mildly dizzy but he did not have any loss of consciousness at that time. Since then he has had mild tenderness in the left orbit, as well as some intermittent blurry vision. He was not able to sleep tonight so he came in this morning at 6 AM for further assessment. He denies any other complaints. No other modifying factors. No other trauma. He does admit to a slight irritated foreign body sensation in his left eye lateral aspect. Exam demonstrates bruising and tenderness on the left lateral orbit, negative ophthalmologic exam otherwise. No evidence show hyphema, corneal abrasion, or other significant abnormality. Will get CT imaging to rule out orbital fracture. Will give Motrin, will monitor closely and reassess. 6:[address] scan results have returned, no evidence of acute fracture. There is a small radiodensity that was noted on the medial aspect of the anterior left thigh, radiology read it as the anterior left globe, however on review of the sagittal view it was clear that this was on the lid of the eye and not the globe itself. Inspection of the patient's eye does show a small metallic fragment on the outer skin, likely dust or debris. This was removed without complication. There was no evidence of foreign body on the eye or under the lid. Patient otherwise looks well. No signs of neurologic deficit on exam, no evidence of fracture or other abnormality. Patient will be discharged home. Suspect potential for mild concussion. Recommend continued NSAID therapy at home. Discussed red flags for which to return. I have extensively reviewed the treatment plan and discharge instructions with the patient. I have addressed all patient concerns at this time. The patient was made aware of what symptoms to monitor for that would warrant a return to the emergency department. Discussed the plan with the patient, they demonstrate verbal understanding and agreement with our assessment and plan at this time. The documentation in this chart was dictated using [employer] dictation software. Please excuse any dictation errors. FINDINGS: Limitations: Mild motion artifact. Paranasal sinuses: Mucosal retention cysts versus polyps in the maxillary sinuses. Orbital cavities: Small radiodensity at the medial aspect of the anterior left globe. Cannot exclude foreign body. Correlate with physical examination. Teeth: Dental caries. Correlate with dental examination. Lymph nodes: Bilateral cervical lymph nodes. Bones: No facial bone fracture seen. Soft tissues: No acute pertinent abnormality demonstrated. IMPRESSION: 1. No acute fracture seen. 2. Findings as above. Thank you for allowing us to participate in the care of your patient. Dictated and Authenticated by: Yoon Light MD 04/03/2025 6:49 AM Eastern Time ([place] & [place]) FINDINGS: Brain: No intracranial hemorrhage. No significant mass effect. No significant midline shift. Cerebral ventricles: No disproportionate ventriculomegaly. Paranasal sinuses: No air-fluid levels seen. Mastoid air cells: No mastoid effusion. Bones: No acute cranial vault fracture seen. Soft tissues: No acute findings. IMPRESSION: No acute intracranial abnormality appreciated. PFSH All Active Problems (Updated 04/03/25 @ 06:57 by Jeromy Arroyo DO) Contusion of left orbit (Acute) Orbit injury, left (Acute) Bronchitis (Acute) Strain of left groin (Acute) Medical History (Updated 04/03/25 @ 06:57 by Jeromy Arroyo DO) No significant past medical history Surgical History No significant past surgical history Social History Smoking/Tobacco Use Status: Current every day Tobacco Type: cigarettes Smoking risk assessment performed?: Yes Alcohol Intake: former Drug use: Daily Substance use type: marijuana Details: last smoked last night 04/03/25 Housing: house Do you feel safe at home: Yes Do you feel safe in your relationship?: Yes
[2025-04-03] MEDS: Ibuprofen 800 MG TAB PO (06:04)
[2025-04-03] MEDS: Fluorescein STRIPS 100/BOX 1 MG (06:06)
[2025-04-03] MEDS: Tetracaine 0.5% 4 ML BTL (06:06)
--- NOTE | 2025-04-03 06:50 | DI.VRAD_ITS ---
PROCEDURE INFORMATION: Exam: CT Head Without Contrast Exam date and time: 04/03/2025 6:11 AM Age: 29 years old Clinical indication: Injury or trauma; Fall; Work related; Blunt trauma (contusions or hematomas); Loss of consciousness unknown; Forehead and orbit/periorbital; Injury date: 04/02/25; Injury details: Hit left brow, bruising TECHNIQUE: Imaging protocol: Computed tomography of the head without contrast. Radiation optimization: All CT scans at this facility use at least one of these dose optimization techniques: automated exposure control; mA and/or kV adjustment per patient size (includes targeted exams where dose is matched to clinical indication); or iterative reconstruction. COMPARISON: No relevant prior studies available. FINDINGS: Brain: No intracranial hemorrhage. No significant mass effect. No significant midline shift. Cerebral ventricles: No disproportionate ventriculomegaly. Paranasal sinuses: No air-fluid levels seen. Mastoid air cells: No mastoid effusion. Bones: No acute cranial vault fracture seen. Soft tissues: No acute findings. IMPRESSION: No acute intracranial abnormality appreciated. PROCEDURE INFORMATION: Exam: CT Maxillofacial Without Contrast Exam date and time: 04/03/2025 6:11 AM Age: 29 years old Clinical indication: Injury or trauma; Fall; Work related; Blunt trauma (contusions or hematomas); Loss of consciousness unknown; Forehead and orbit/periorbital; Injury date: 04/02/25; Injury details: Hit left brow, bruising TECHNIQUE: Imaging protocol: Computed tomography of the face without contrast. Radiation optimization: All CT scans at this facility use at least one of these dose optimization techniques: automated exposure control; mA and/or kV adjustment per patient size (includes targeted exams where dose is matched to clinical indication); or iterative reconstruction. COMPARISON: No relevant prior studies available. FINDINGS: Limitations: Mild motion artifact. Paranasal sinuses: Mucosal retention cysts versus polyps in the maxillary sinuses. Orbital cavities: Small radiodensity at the medial aspect of the anterior left globe. Cannot exclude foreign body. Correlate with physical examination. Teeth: Dental caries. Correlate with dental examination. Lymph nodes: Bilateral cervical lymph nodes. Bones: No facial bone fracture seen. Soft tissues: No acute pertinent abnormality demonstrated. IMPRESSION: 1. No acute fracture seen. 2. Findings as above. Dictated and Authenticated by: Yoon Light MD. Orderin Dina Pinzon MD
== END 2025-04-03 07:03 | disposition home or self-care (01) ==
PROVIDERS: Emergency Provider Student in an Organized Health Care Education/Training Program
DX: S05.12XA Contusion of eyeball and orbital tissues, left eye, initial encounter (principal); X58.XXXA Exposure to other specified factors, initial encounter
CPT/HCPCS: 99284 ×2; 70450; 70486

== ENCOUNTER 2025-04-03 18:20 | Emergency (ER) | payer SELFPAY ==
[2025-04-03 18:38] VITALS: BP 115/71; PULSE 63; RESP 15; TEMP 36.9; O2SAT 95
--- NOTE | 2025-04-03 18:45 | DI.CT_ITS ---
Exam(s) CT HEAD WO EXAM: CT HEAD WO CLINICAL HISTORY: vomiting post head injury. TECHNIQUE: Imaging Protocol: Axial computed tomography images with coronal and sagittal reformatted images were created and reviewed COMPARISON: CT CT HEAD FACIAL WO from 04/03/2025 FINDINGS: There are no skull fractures. There is no fluid in the visualized paranasal sinuses. There is no evidence of intracranial hemorrhage, mass effect, or shift of midline structures. There are no extra-axial fluid collections. The ventricles are not enlarged or shifted and there is no blood within the ventricular system nor within the basal cisterns. When compared to yesterday's CT scan there does not appear to be effacement of the sulci to suggest increasing brain edema. IMPRESSION: No acute intracranial findings on this noninfused CT scan of the brain. No significant change compared to scan of less than 24 hours ago Preliminary V rad report was reviewed RADIATION DOSE DELIVERED: 871.74mGy.cm Total DLP DATA REPOSITORY: All CT scans at this facility are submitted to the National Radiology Data Registry (NRDR) Dose Index Registry (DIR) with the [employer] (A[employer]). RADIATION OPTIMIZATION: All CT scans at this facility use at least one of these dose optimization techniques: automated exposure control; mA and/or kV adjustment per patient size (includes targeted exams where dose is matched to clinical indication); or iterative reconstruction.
[2025-04-03] MEDS: ACETAMINOPHEN 500 MG/50 ML BAG 200 MG IVPB (19:14)
[2025-04-03] MEDS: Ondansetron 4 MG/2 ML VIAL IVP (19:14)
[2025-04-03] MEDS: Normal Saline 1,000 ML 1000 ML IV (19:14)
--- NOTE | 2025-04-03 19:23 | ED.GENADUL_ITS ---
Discharge Plan Disposition Patient Disposition: Home Discharge Details Clinical Impression: Concussion, Nausea & vomiting Primary Care Provider: Unknown,Unknown ED Provider: Deandra Massey Home Meds and New Rx's Prescriptions: New ondansetron 4 mg tablet,disintegrating 4 mg PO TID PRN3 Days Qty: 10 0RF Continued acetaminophen [Tylenol Extra Strength] 500 mg tablet 1,000 mg PO Q6H PRN lidocaine [Lidoderm] 5 % adhesive patch,medicated 1 patch Topical Q24H Qty: 15 0RF promethazine-DM 6.25-15 mg/5 mL syrup 5 ml PO Q6H PRNQty: 118 0RF benzonatate 100 mg capsule 100 mg PO BID PRNQty: 7 0RF fluticasone propionate [Flonase Allergy Relief] 50 mcg/actuation spray,suspension 1 spray intranasal DAILY Qty: 16 0RF Rx Instructions: administer into each nostril chlorhexidine gluconate 0.12 % mouthwash 15 ml PO DAILY Patient Comments: SWISH AND SPIT 15 ML BY MOUTH TWICE DAILY Discharge Instructions Instructions: Concussion, Adult ED Additional Instructions: Take Zofran as needed for nausea and vomiting Motrin and Tylenol for headache Recommends refraining from driving until headache and nausea resolve Please be cleared to return to work by your primary care physician in 7 days or earlier if your symptoms resolve Recommend decreasing any activities that require focus such as watching TV, phone use, and reading Should your vomiting or headache worsen, please present for reassessment Stand Alone Forms: Work Release HPI General Date/Time Provider Initiated Documentation: 04/03/25 18:28 . HPI Narrative: This 29-year-old male presents with report of vomiting x 2 after head injury this morning. He states that he had a headache when he took a nap but then when he awoke the vomiting concerned him. He denies any vision change. He has a moderate headache he denies any blurred vision chest pain shortness of breath or neck pain. He was ambulatory and actually drove his vehicle here to this facility. Denies any history of coagulopathy. Related Data Home Medications Medication Instructions Recorded Confirmed acetaminophen 500 mg tablet 1,000 mg PO Q6H PRN 04/03/25 (Tylenol Extra Strength) lidocaine 5 % topical patch 1 patch topical Q24H #15 e a 01/25/24 04/03/25 (Lidoderm) benzonatate 100 mg capsule 100 mg PO BID PRN #7 caps 0 03/06/25 04/03/25 fluticasone propionate 50 1 spray intranasal DAILY #16 grams 03/06/25 04/03/25 mcg/actuation nasal spray,suspension (Flonase Allergy Relief) promethazine-DM 6.25 mg-15 mg/5 mL 5 ml PO Q6H PRN #11 8 mL 03/06/25 04/03/25 oral syrup chlorhexidine gluconate 0.12 % 15 ml PO DAILY 04/03/25 04/03/25 mouthwash ondansetron 4 mg disintegrating 4 mg PO TID PRN 3 days #10 tabs 04/03/25 tablet Previous Rx's Medication Instructions Recorded lidocaine 5 % topical patch 1 patch topical Q24H #15 e a 01/25/24 (Lidoderm) benzonatate 100 mg capsule 100 mg PO BID PRN #7 caps 0 03/06/25 fluticasone propionate 50 1 spray intranasal DAILY #16 grams 03/06/25 mcg/actuation nasal spray,suspension (Flonase Allergy Relief) promethazine-DM 6.25 mg-15 mg/5 mL 5 ml PO Q6H PRN #11 8 mL 03/06/25 oral syrup ondansetron 4 mg disintegrating 4 mg PO TID PRN 3 days #10 tabs 04/03/25 tablet Allergies Allergy/AdvReac Type Severity Reaction Status Date / Time No Known Allergies Allergy Verified 04/03/25 18:44 General Stated Complaint: Recheck NIYA: 3 Exam Narrative Exam Narrative: Alert, oriented, no acute distress, bruising noted to left periorbital region, answering questions appropriately cranial nerves II through XII intact lungs clear to auscultation cardiac rate rhythm regular. No abdominal tenderness patient ambulatory steady gait into the emergency department. Course Vital Signs Vital signs: Vital Signs Temperature 36.9 C 04/03/25 18:38 Pulse 63 04/03/25 18:38 Respiratory Rate 15 04/03/25 18:38 Blood Pressure 115/71 04/03/25 18:38 Pulse Oximetry 95 04/03/25 18:38 Temperature 36.9 C 04/03/25 18:38 Temperature Source Oral 04/03/25 18:38 Pulse 63 10/28/25 18:38 Respiratory Rate 15 04/03/25 18:38 Blood Pressure 115/71 04/03/25 18:38 Blood Pressure Position Sitting 04/03/25 18:38 Pulse Oximetry 95 04/03/25 18:38 Pain Level 5 04/03/25 18:38 Medical Decision Making Results: CT brain does not show evidence of acute abnormality per radiology interpretation my review Assessment and plan: Patient presents post head injury with vomiting. CT head and brain was ordered and per radiology interpretation my review there is no acute abnormality. Patient was given Tylenol, Zofran, Toradol and fluids intravenously and feels improvement and able to tolerate p.o.. Patient will be diagnosed with concussion and given a work note as this happened at work reportedly. He is encouraged to take Motrin and Tylenol refrain from driving, take Zofran as needed for nausea and vomiting and to return should he have new or worsening complaints. He is not to return to work until he is cleared by his primary care physician at resolution of symptoms. [facility] All Active Problems (Updated 04/03/25 @ 21:05 by ISIS Watts) Nausea & vomiting (Acute) Concussion (Acute) Contusion of left orbit (Acute) Orbit injury, left (Acute) Bronchitis (Acute) Strain of left groin (Acute) Medical History (Updated 04/03/25 @ 21:05 by ISIS Watts) No significant past medical history Surgical History No significant past surgical history Social History Smoking/Tobacco Use Status: Current every day Tobacco Type: cigarettes Smoking risk assessment performed?: Yes Alcohol Intake: former Drug use: Daily Substance use type: marijuana Details: last smoked last night 04/03/25 Housing: house Do you feel safe at home: Yes Do you feel safe in your relationship?: Yes
[2025-04-03 20:24] VITALS: BP 112/76; PULSE 70; RESP 16
--- NOTE | 2025-04-03 20:37 | DI.VRAD_ITS ---
PROCEDURE INFORMATION: Exam: CT Head Without Contrast Exam date and time: 04/03/2025 7:43 PM Age: 29 years old Clinical indication: Injury or trauma; Fall; Work related; Blunt trauma (contusions or hematomas); Injury date: 04/02/25; Injury details: Vomiting TECHNIQUE: Imaging protocol: Computed tomography of the head without contrast. Radiation optimization: All CT scans at this facility use at least one of these dose optimization techniques: automated exposure control; mA and/or kV adjustment per patient size (includes targeted exams where dose is matched to clinical indication); or iterative reconstruction. COMPARISON: CT HEAD FACIAL WO 04/03/2025 6:11 AM FINDINGS: Brain: Normal. No hemorrhage. Unremarkable white matter. No mass effect. Cerebral ventricles: No ventriculomegaly. Paranasal sinuses: Visualized sinuses are unremarkable. No fluid levels. Mastoid air cells: Visualized mastoid air cells are well aerated. Bones: Unremarkable. No acute fracture. Soft tissues: Unremarkable. IMPRESSION: No acute intracranial abnormality. Dictated and Authenticated by: Jalen Goldstein MD. Orderin Bryson Liriano MD
[2025-04-03] MEDS: Ketorolac 15 MG/ML VIAL 7.5 MG IVP (21:28)
== END 2025-04-03 21:29 | disposition home or self-care (01) ==
PROVIDERS: Emergency Provider Physician Assistant
DX: S06.0XAA Concussion with loss of consciousness status unknown, initial encounter (principal); R11.2 Nausea with vomiting, unspecified; X58.XXXA Exposure to other specified factors, initial encounter
CPT/HCPCS: 99284 ×2; 96365; 70450; J0131; J1885; J2405